=== PATIENT | male | born 1940 | race African-American/Black ===

== ENCOUNTER 2016-09-04 13:29 | Inpatient (IN) | payer OTHER, BC ==
[~2016-09-04] VITALS: Ht 175.3 cm; Wt 67.9 kg
[2016-09-04 11:30] VITALS: BP 142/81
[~2016-09-04 13:29] MED LIST: AMLODIPINE BESY10 MG PO; BICITRA SOLUTI473 ML PO; CARDIZEM CD120 M1 PO; CEFTIN500 MG PO; CYANOCOBALAM1000 MCG PO; ELIQUIS5 MG PO; ENDOCET 5-3251 EACH PO; ERGOCALCIF50000 UNIT PO; LANTUS 10100 UNITS/ SC; LEVEMIR100 UNIT/2 SC; LOPRESSOR100 M1 PO; NOVOLOG PE100 UNITS/ SC; SIMVASTATIN10 MG PO; VANCOMYCIN1.25 GM/25 IV
[2016-09-04 14:08] LABS: POINT-OF-CARE METER ID UU13113778
[2016-09-04 15:02] LABS: HEMATOCRIT 32.4 % (38.0-50.0); MCH 29.6 PG (29.0-34.0); MCV 89.8 FL (86-99); MEAN PLAT.VOLUME 9.9 uM^3 (9.0-12.4); PLATELET COUNT 257 K/uL (156-360); RBC DIS.WIDTH-CV 13.5 % (11.8-14.6); RBC DIS.WIDTH-SD 44.6 % (39-53); RED BLOOD COUNT 3.61 M/uL (4.00-5.50); WHITE BLOOD COUNT 16.8 K/uL (4.1-10.2)
[2016-09-04 15:13] LABS: CHLORIDE 106 mEq/L (99-109); POTASSIUM 4.8 mEq/L (3.7-5.4); SODIUM 136 mEq/L (136-147)
[2016-09-04 15:15] LABS: GLUCOSE 288 mg/dL (70-99)
[2016-09-04 15:16] LABS: ANION GAP 12 MEQ/L (2-14)
[2016-09-04 15:19] LABS: GFR ESTIMATE (CALCULATED) 31 mL/min/
[2016-09-04 15:20] LABS: UREA NITROGEN (BUN) 39 mg/dL (9-23)
[2016-09-04 15:27] LABS: TROP-I INTERPRETATION POSITIVE
[2016-09-04 15:46] LABS: TROPONIN-I 3.86 ng/mL (0.0-0.30)
[2016-09-04] MEDS ORDERED: NOVOLOG PE100 UNITS/ SC (16:28)
[2016-09-04] MEDS ORDERED: LANTUS 3 M100 UNITS1 SC (16:31)
[2016-09-04] MEDS ORDERED: ELIQUIS5 MG PO (16:32)
[2016-09-04] MEDS ORDERED: CEPHALEXIN250 MG PO (16:33)
[2016-09-04] MEDS ORDERED: NORVASC10 MG PO (16:33)
[2016-09-04 17:16] LABS: ADD MIUA? YES; BILIRUBIN NEGATIVE; BLOOD MODERATE; COLOR YELLOW ((YELLOW)); GLUCOSE (STRIP) >=500; KETONES NEGATIVE; LEUKOCYTES NEGATIVE; NITRITE NEGATIVE; PROTEIN (STRIP) 100; UROBILINOGEN 0.2 MG/DL (0.2-1.0)
[2016-09-04 17:40] LABS: BACTERIA 1+ /HPF; EPITHELIAL CELLS RARE /HPF; MUCUS NONE SEEN /LPF; RED BLOOD CELLS 0-5 /HPF (0-5); UCUL ADDED? NO; WHITE BLOOD CELLS 0-5 /HPF (0-5)
[2016-09-04 18:30] VITALS: BP 144/81
[2016-09-04 19:40] VITALS: BP 150/71
[2016-09-04 21:52] LABS: TROP-I INTERPRETATION POSITIVE; TROPONIN-I 5.61 ng/mL (0.0-0.30)
[2016-09-04 23:06] LABS: BASE EXCESS -5.3 mEq/L (-3 to +3); BICARBONATE 18.6 mEq/L (22-26); CARBOXY HGB 1.7 % (0-5); COMMENTS - BLOOD GASES C+A+; DEVICE HFNC; METHEMOGLOBIN 1.7 % (0-1.5); O2 FLOW 10 L/MIN; PCO2 30 mm Hg (35-45); PO2 51 mm Hg (80-100); SITE RR
[2016-09-04 23:07] LABS: TOTAL RESP RATE 30 resp/min
[2016-09-05] VITALS (10 sets, daily range): BP systolic 96–154; BP diastolic 49–86
[2016-09-05 03:42] LABS: EOSINOPHIL (%) 0 % (0-5); HEMATOCRIT 29.9 % (38.0-50.0); IMMATURE GRANULOCYTE (%) 0.5 % (0.0-0.7); IMMATURE GRANULOCYTE COUNT 0.1 K/uL; LYMPHOCYTE COUNT 1.6 K/uL (1.0-2.8); MCH 29.8 PG (29.0-34.0); MCHC 33.1 G/DL (30.0-36.0); MCV 90.1 FL (86-99); MEAN PLAT.VOLUME 10.6 uM^3 (9.0-12.4); MONOCYTE (%) 14.2 % (3-12); MONOCYTE COUNT 2.4 K/uL (0-0.8); NEUTROPHIL (%) 75.6 % (45-76); PLATELET COUNT 221 K/uL (156-360); RBC DIS.WIDTH-CV 13.7 % (11.8-14.6); RBC DIS.WIDTH-SD 45.3 % (39-53); RED BLOOD COUNT 3.32 M/uL (4.00-5.50); WHITE BLOOD COUNT 17.2 K/uL (4.1-10.2)
[2016-09-05 03:50] LABS: CHLORIDE 107 mEq/L (99-109); POTASSIUM 4.7 mEq/L (3.7-5.4); SODIUM 135 mEq/L (136-147)
[2016-09-05 03:52] LABS: GLUCOSE 271 mg/dL (70-99)
[2016-09-05 03:53] LABS: ANION GAP 14 MEQ/L (2-14)
[2016-09-05 03:56] LABS: GFR ESTIMATE (CALCULATED) 33 mL/min/; UREA NITROGEN (BUN) 41 mg/dL (9-23)
[2016-09-05 04:07] LABS: TROP-I INTERPRETATION POSITIVE; TROPONIN-I 5.33 ng/mL (0.0-0.30)
[2016-09-05 08:07] LABS: POINT-OF-CARE METER ID UU14174216
[2016-09-05 08:35] LABS: INTERNAL CONTROL VALID? YES
[2016-09-05 09:09] LABS: ANION GAP 12 MEQ/L (2-14); CHLORIDE 103 MEQ/L (99-109); GFR ESTIMATE (CALCULATED) 34 mL/min/; GLUCOSE 244 mg/dL (70-99); POTASSIUM 4.5 MEQ/L (3.7-5.4); SAMPLE HEMOLYSIS CHECK 0; SAMPLE ICTERIC CHECK 0; SAMPLE LIPEMIA CHECK 0; SODIUM 134 MEQ/L (136-147); UREA NITROGEN (BUN) 41 mg/dL (9-23)
[2016-09-05 13:05] LABS: BICARBONATE 16.2 mEq/L (22-26); CARBOXY HGB 1.5 % (0-5); METHEMOGLOBIN 1.3 % (0-1.5); PCO2 25 mm Hg (35-45); pH 7.42 (7.35-7.45)
[2016-09-05 13:06] LABS: COMMENTS - BLOOD GASES A+C+; DEVICE NRBM; FI02 100 %; O2 FLOW 15 L/MIN; PO2 95 mm Hg (80-100); SITE LR; TOTAL RESP RATE 25 resp/min
[2016-09-05 13:54] LABS: POINT-OF-CARE METER ID UU13113696
[2016-09-05 15:44] LABS: BASE EXCESS -11.1 mEq/L (-3 to +3); BICARBONATE 14.6 mEq/L (22-26); CARBOXY HGB 1.2 % (0-5); METHEMOGLOBIN 1.3 % (0-1.5)
[2016-09-05 15:45] LABS: PCO2 31 mm Hg (35-45); PO2 64 mm Hg (80-100); pH 7.28 (7.35-7.45)
[2016-09-05 15:46] LABS: SITE RF
[2016-09-05 18:30] LABS: CARBOXY HGB 1.3 % (0-5); METHEMOGLOBIN 1.5 % (0-1.5)
[2016-09-05 18:31] LABS: BICARBONATE 17.7 mEq/L (22-26); COMMENTS - BLOOD GASES C+; DEVICE 980; FI02 80 %; MECHANICAL RATE 22 resp/min; MODE A/C; PCO2 36 mm Hg (35-45); PEEP 14 CM/H20; PO2 289 mm Hg (80-100); SITE RIGHT FEMRAL ALINE; TIDAL VOLUME 500 ML
[2016-09-05 18:40] LABS: POINT-OF-CARE METER ID UU13113731
[2016-09-05 19:08] LABS: EOSINOPHIL (%) 0 % (0-5); IMMATURE GRANULOCYTE (%) 0.9 % (0.0-0.7); IMMATURE GRANULOCYTE COUNT 0.2 K/uL; INSTRUMENT ABS NEUTROPHIL CT 13.3 K/uL; LYMPHOCYTE COUNT 1.3 K/uL (1.0-2.8); MCHC 33.5 G/DL (30.0-36.0); MCV 89.7 FL (86-99); MEAN PLAT.VOLUME 10.9 uM^3 (9.0-12.4); MONOCYTE COUNT 2.4 K/uL (0-0.8); NEUTROPHIL (%) 77.4 % (45-76); NEUTROPHIL COUNT 13.3 K/uL (1.8-6.4); PLATELET COUNT 258 K/uL (156-360); RBC DIS.WIDTH-CV 13.9 % (11.8-14.6); RBC DIS.WIDTH-SD 45.3 % (39-53); WHITE BLOOD COUNT 17.2 K/uL (4.1-10.2)
[2016-09-05 19:15] LABS: CHLORIDE 106 mEq/L (99-109); POTASSIUM 4.6 mEq/L (3.7-5.4); SODIUM 133 mEq/L (136-147)
[2016-09-05 19:17] LABS: GLUCOSE 237 mg/dL (70-99)
[2016-09-05 19:19] LABS: ANION GAP 13 MEQ/L (2-14)
[2016-09-05 19:21] LABS: GFR ESTIMATE (CALCULATED) 31 mL/min/
[2016-09-05 19:22] LABS: UREA NITROGEN (BUN) 45 mg/dL (9-23)
[2016-09-05 23:45] LABS: HEMATOCRIT 24.6 % (38.0-50.0); MCHC 33.3 G/DL (30.0-36.0); MCV 90.1 FL (86-99); MEAN PLAT.VOLUME 10.5 uM^3 (9.0-12.4); NRBC (%) 0.1 /100 WBC (0-0); PLATELET COUNT 246 K/uL (156-360); RBC DIS.WIDTH-CV 13.9 % (11.8-14.6); RBC DIS.WIDTH-SD 45.5 % (39-53); RED BLOOD COUNT 2.73 M/uL (4.00-5.50); WHITE BLOOD COUNT 14.8 K/uL (4.1-10.2)
[2016-09-05 23:54] LABS: POINT-OF-CARE METER ID UU13113731; POINT-OF-CARE USER ID 609231305
[2016-09-06 00:03] LABS: INTER. NORMALIZED RATIO 1.3; PROTHROMBIN TIME 12.8 (9.2-11.2); PTT 36.5 (25-32)
[2016-09-06 01:02] LABS: TROP-I INTERPRETATION POSITIVE; TROPONIN-I 14.48 ng/mL (0.0-0.30)
[2016-09-06 01:02] LABS: CK-MB 18.6 ng/mL (0.0-4.9)
[2016-09-06 01:39] LABS: CREATINE KINASE 621 IU/L (1-294); TOTAL CK 621 IU/L (1-294)
[2016-09-06 02:24] LABS: METH RESISTANT S AUREUS PCR POSITIVE (NEGATIVE)
[2016-09-06 03:15] LABS: PROBE CHECK PASS
[2016-09-06 06:06] LABS: TROP-I INTERPRETATION POSITIVE; TROPONIN-I 13.06 ng/mL (0.0-0.30)
[2016-09-06 06:07] LABS: BASOPHIL COUNT 0.1 K/uL (0-0.1); EOSINOPHIL (%) 0.2 % (0-5); HEMATOCRIT 24.1 % (38.0-50.0); IMMATURE GRANULOCYTE (%) 0.6 % (0.0-0.7); IMMATURE GRANULOCYTE COUNT 0.1 K/uL; INSTRUMENT ABS NEUTROPHIL CT 13.6 K/uL; MCH 30.1 PG (29.0-34.0); MCHC 33.6 G/DL (30.0-36.0); MCV 89.6 FL (86-99); MEAN PLAT.VOLUME 10.8 uM^3 (9.0-12.4); MONOCYTE (%) 11.5 % (3-12); MONOCYTE COUNT 2.1 K/uL (0-0.8); NEUTROPHIL (%) 76.1 % (45-76); NEUTROPHIL COUNT 13.6 K/uL (1.8-6.4); NRBC (%) 0.2 /100 WBC (0-0); PLATELET COUNT 268 K/uL (156-360); RBC DIS.WIDTH-SD 45.2 % (39-53); RED BLOOD COUNT 2.69 M/uL (4.00-5.50); WHITE BLOOD COUNT 17.8 K/uL (4.1-10.2)
[2016-09-06 07:04] LABS: CK-MB 13.4 ng/mL (0.0-4.9)
[2016-09-06 07:18] LABS: ANION GAP 11 MEQ/L (2-14); CHLORIDE 107 MEQ/L (99-109); CREATINE KINASE 484 IU/L (1-294); GFR ESTIMATE (CALCULATED) 31 mL/min/; GLUCOSE 120 mg/dL (70-99); MAGNESIUM 2.2 mg/dl (1.3-2.7); SAMPLE HEMOLYSIS CHECK 1; SAMPLE ICTERIC CHECK 0; SAMPLE LIPEMIA CHECK 0; SODIUM 136 MEQ/L (136-147); TOTAL CK 484 IU/L (1-294); UREA NITROGEN (BUN) 45 mg/dL (9-23)
[2016-09-06 10:09] LABS: BASE EXCESS -7.8 mEq/L (-3 to +3); BICARBONATE 16.1 mEq/L (22-26); CARBOXY HGB 1.3 % (0-5); PCO2 26 mm Hg (35-45); PO2 154 mm Hg (80-100); SITE L ART LINE
[2016-09-06 10:10] LABS: DEVICE VENT; FI02 50 %; MECHANICAL RATE 18 resp/min; MODE AC; PEEP 10 CM/H20; TIDAL VOLUME 500 ML; TOTAL RESP RATE 26 resp/min
[2016-09-06 11:02] LABS: ADD MIUA? YES; BILIRUBIN NEGATIVE; BLOOD SMALL; GLUCOSE (STRIP) NEGATIVE; KETONES NEGATIVE; LEUKOCYTES TRACE; NITRITE NEGATIVE; PROTEIN (STRIP) 100; SPECIFIC GRAVITY 1.018 (1.000-1.030); UROBILINOGEN 0.2 MG/DL (0.2-1.0)
[2016-09-06 11:03] LABS: COLOR LT YELLOW ((YELLOW))
[2016-09-06 11:23] LABS: BACTERIA RARE /HPF; CALCIUM OXALATE CRYSTALS 2+ /HPF; EPITHELIAL CELLS RARE /HPF; GRANULAR CASTS 0-5 /LPF; HYALINE CASTS 0-5 /LPF; MUCUS 1+ /LPF; RED BLOOD CELLS 20-30 /HPF (0-5); UCUL ADDED? NO; WHITE BLOOD CELLS 30-40 /HPF (0-5)
[2016-09-06 12:01] LABS: POINT-OF-CARE METER ID UU13113803
[2016-09-06 13:08] LABS: UR CREATININE CONCENTRATION 70.5 MG/DL
[2016-09-06 13:27] LABS: CREATINE KINASE 567 IU/L (1-294); TOTAL CK 567 IU/L (1-294)
[2016-09-06 13:34] LABS: CK-MB 10.7 ng/mL (0.0-4.9)
[2016-09-06 13:38] LABS: TROP-I INTERPRETATION POSITIVE; TROPONIN-I 9.12 ng/mL (0.0-0.30)
[2016-09-06 16:16] LABS: BASE EXCESS -7.2 mEq/L (-3 to +3); BICARBONATE 17.2 mEq/L (22-26); CARBOXY HGB 1.4 % (0-5); METHEMOGLOBIN 1.6 % (0-1.5); PCO2 29 mm Hg (35-45); pH 7.38 (7.35-7.45)
[2016-09-06 16:17] LABS: PO2 175 mm Hg (80-100)
[2016-09-06 16:18] LABS: COMMENTS - BLOOD GASES C+; DEVICE VENT; FI02 50 %; MECHANICAL RATE 16 resp/min; MODE A/C; PEEP 10 CM/H20; SITE A LINE; TIDAL VOLUME 500 ML; TOTAL RESP RATE 23 resp/min
[2016-09-06 18:19] LABS: CREATINE KINASE 432 IU/L (1-294); TOTAL CK 432 IU/L (1-294)
[2016-09-06 18:24] LABS: TROP-I INTERPRETATION POSITIVE; TROPONIN-I 6.19 ng/mL (0.0-0.30)
[2016-09-06 18:24] LABS: POINT-OF-CARE METER ID UU13113803
[2016-09-06 18:39] LABS: CK-MB 11.7 ng/mL (0.0-4.9)
[2016-09-06 22:00] VITALS: BP 126/64
[2016-09-06 23:00] VITALS: BP 126/64
[2016-09-07 02:09] LABS: POINT-OF-CARE METER ID UU14162636
[2016-09-07 05:40] LABS: POINT-OF-CARE METER ID UU14162636
[2016-09-07 06:40] LABS: EOSINOPHIL (%) 1.6 % (0-5); EOSINOPHIL COUNT 0.2 K/uL (0-0.3); HEMATOCRIT 19.7 % (38.0-50.0); IMMATURE GRANULOCYTE (%) 0.4 % (0.0-0.7); INSTRUMENT ABS NEUTROPHIL CT 7.3 K/uL; LYMPHOCYTE COUNT 0.9 K/uL (1.0-2.8); MCHC 32.5 G/DL (30.0-36.0); MCV 92.5 FL (86-99); MONOCYTE (%) 11.3 % (3-12); MONOCYTE COUNT 1.1 K/uL (0-0.8); NEUTROPHIL (%) 76.9 % (45-76); NEUTROPHIL COUNT 7.3 K/uL (1.8-6.4); NRBC (%) 0.3 /100 WBC (0-0); RBC DIS.WIDTH-CV 14.2 % (11.8-14.6); RBC DIS.WIDTH-SD 47.8 % (39-53)
[2016-09-07 06:41] LABS: RED BLOOD COUNT 2.13 M/uL (4.00-5.50); WHITE BLOOD COUNT 9.5 K/uL (4.1-10.2)
[2016-09-07 06:49] LABS: ANION GAP 12 MEQ/L (2-14); CHLORIDE 109 MEQ/L (99-109); GLUCOSE 152 mg/dL (70-99); MAGNESIUM 2.3 mg/dl (1.3-2.7); SAMPLE HEMOLYSIS CHECK 0; SAMPLE ICTERIC CHECK 0; SAMPLE LIPEMIA CHECK 0; SODIUM 136 MEQ/L (136-147); UREA NITROGEN (BUN) 52 mg/dL (9-23)
[2016-09-07 06:51] LABS: GFR ESTIMATE (CALCULATED) 23 mL/min/
[2016-09-07 06:57] LABS: MEAN PLAT.VOLUME 10.9 uM^3 (9.0-12.4); PLAT.SUFFICIENCY ADEQUATE; PLATELET COUNT 190 K/uL (156-360)
[2016-09-07 10:28] VITALS: BP 126/53
[2016-09-07 12:12] LABS: POINT-OF-CARE METER ID UU14162636
[2016-09-07 12:55] VITALS: BP 114/52
[2016-09-07 18:06] LABS: MCV 89.5 FL (86-99)
[2016-09-07 21:37] LABS: ANION GAP 12 MEQ/L (2-14); CHLORIDE 109 MEQ/L (99-109); GFR ESTIMATE (CALCULATED) 21 mL/min/; GLUCOSE 143 mg/dL (70-99); SAMPLE HEMOLYSIS CHECK 0; SAMPLE ICTERIC CHECK 0; SAMPLE LIPEMIA CHECK 0; SODIUM 135 MEQ/L (136-147); UREA NITROGEN (BUN) 50 mg/dL (9-23)
[2016-09-08 01:04] LABS: POINT-OF-CARE METER ID UU13113803
[2016-09-08 06:34] LABS: POINT-OF-CARE METER ID UU13113803
[2016-09-08 07:45] LABS: EOSINOPHIL COUNT 0.4 K/uL (0-0.3); HEMATOCRIT 24.8 % (38.0-50.0); IMMATURE GRANULOCYTE (%) 0.7 % (0.0-0.7); IMMATURE GRANULOCYTE COUNT 0.1 K/uL; INSTRUMENT ABS NEUTROPHIL CT 6.2 K/uL; LYMPHOCYTE COUNT 0.8 K/uL (1.0-2.8); MCHC 33.1 G/DL (30.0-36.0); MCV 87.6 FL (86-99); MEAN PLAT.VOLUME 10.8 uM^3 (9.0-12.4); MONOCYTE (%) 10.5 % (3-12); MONOCYTE COUNT 0.9 K/uL (0-0.8); NEUTROPHIL (%) 73.7 % (45-76); NEUTROPHIL COUNT 6.2 K/uL (1.8-6.4); NRBC (%) 1.3 /100 WBC (0-0); PLATELET COUNT 230 K/uL (156-360); RBC DIS.WIDTH-CV 15.6 % (11.8-14.6); RBC DIS.WIDTH-SD 50.2 % (39-53); WHITE BLOOD COUNT 8.4 K/uL (4.1-10.2)
[2016-09-08 07:47] LABS: RED BLOOD COUNT 2.83 M/uL (4.00-5.50)
[2016-09-08 08:27] LABS: ANION GAP 18 MEQ/L (2-14); CHLORIDE 107 MEQ/L (99-109); GFR ESTIMATE (CALCULATED) 18 mL/min/; GLUCOSE 170 mg/dL (70-99); MAGNESIUM 2.4 mg/dl (1.3-2.7); POTASSIUM 4.8 MEQ/L (3.7-5.4); SAMPLE HEMOLYSIS CHECK 0; SAMPLE ICTERIC CHECK 0; SAMPLE LIPEMIA CHECK 0; SODIUM 137 MEQ/L (136-147); UREA NITROGEN (BUN) 53 mg/dL (9-23)
[2016-09-08 12:23] LABS: POINT-OF-CARE METER ID UU13113803
[2016-09-08 15:04] LABS: IRON 69 MCG/DL (35-150)
[2016-09-08 15:33] LABS: BASE EXCESS -8.8 mEq/L (-3 to +3); BICARBONATE 14.9 mEq/L (22-26); CARBOXY HGB 1.7 % (0-5); METHEMOGLOBIN 1.2 % (0-1.5)
[2016-09-08 15:34] LABS: COMMENTS - BLOOD GASES C+; DEVICE VENT; FI02 40 %; MECHANICAL RATE 16 resp/min; MODE AC PC; PCO2 24 mm Hg (35-45); PO2 61 mm Hg (80-100); PRESSURE CONTROL VENTILATION 12 CM H20; SITE LR ALINE; TOTAL RESP RATE 30 resp/min
[2016-09-08 15:35] LABS: INSPIRATION TIME 0.8 seconds; PEEP 8 CM/H20
[2016-09-08 17:37] LABS: POINT-OF-CARE METER ID UU13113803
[2016-09-08 18:30] VITALS: BP 126/64
[2016-09-08 18:36] LABS: BASE EXCESS -8.2 mEq/L (-3 to +3); BICARBONATE 15.2 mEq/L (22-26); CARBOXY HGB 1.6 % (0-5); DEVICE 940; FI02 40 %; METHEMOGLOBIN 1.5 % (0-1.5); PCO2 24 mm Hg (35-45); PO2 58 mm Hg (80-100); SITE LEFT A LINE; pH 7.41 (7.35-7.45)
[2016-09-08 18:37] LABS: MECHANICAL RATE 16 resp/min; MODE A/C VC+; TIDAL VOLUME 500 ML
[2016-09-09] VITALS (10 sets, daily range): BP systolic 116–146; BP diastolic 62–81
[2016-09-09 00:35] LABS: POINT-OF-CARE METER ID UU14174217
[2016-09-09 05:47] LABS: EOSINOPHIL (%) 4.1 % (0-5); EOSINOPHIL COUNT 0.5 K/uL (0-0.3); HEMATOCRIT 24.6 % (38.0-50.0); IMMATURE GRANULOCYTE (%) 1.3 % (0.0-0.7); IMMATURE GRANULOCYTE COUNT 0.2 K/uL; INSTRUMENT ABS NEUTROPHIL CT 8.5 K/uL; LYMPHOCYTE COUNT 0.8 K/uL (1.0-2.8); MCH 29.5 PG (29.0-34.0); MCHC 33.7 G/DL (30.0-36.0); MCV 87.5 FL (86-99); MEAN PLAT.VOLUME 10.3 uM^3 (9.0-12.4); MONOCYTE (%) 11.5 % (3-12); MONOCYTE COUNT 1.3 K/uL (0-0.8); NEUTROPHIL (%) 75.5 % (45-76); NEUTROPHIL COUNT 8.5 K/uL (1.8-6.4); NRBC (%) 2.2 /100 WBC (0-0); PLATELET COUNT 232 K/uL (156-360); RBC DIS.WIDTH-CV 15.5 % (11.8-14.6); RBC DIS.WIDTH-SD 49.4 % (39-53); RED BLOOD COUNT 2.81 M/uL (4.00-5.50); WHITE BLOOD COUNT 11.2 K/uL (4.1-10.2)
[2016-09-09 05:49] LABS: POINT-OF-CARE METER ID UU13113803
[2016-09-09 05:50] LABS: TRIGLYCERIDES 108 MG/DL (Normal: <150)
[2016-09-09 06:14] LABS: ALKALINE PHOSPHATASE 166 IU/L (3-129); ANION GAP 18 MEQ/L (2-14); CHLORIDE 108 MEQ/L (99-109); DIRECT BILIRUBIN 0.2 mg/dL (0.0-0.3); GFR ESTIMATE (CALCULATED) 17 mL/min/; GLUCOSE 140 mg/dL (70-99); MAGNESIUM 2.4 mg/dl (1.3-2.7); SAMPLE HEMOLYSIS CHECK 0; SAMPLE ICTERIC CHECK 0; SAMPLE LIPEMIA CHECK 0; SODIUM 139 MEQ/L (136-147); TOTAL BILIRUBIN 0.7 MG/DL (0.0-1.0); UREA NITROGEN (BUN) 63 mg/dL (9-23)
[2016-09-09 07:18] LABS: INTACT PARATHYROID HORMONE 335 pg/mL (10-69)
[2016-09-09 12:21] LABS: POINT-OF-CARE METER ID UU14174217
[2016-09-09 15:10] LABS: MAGNESIUM 2.5 mg/dL (1.3-2.7)
[2016-09-09 18:02] LABS: POINT-OF-CARE METER ID UU13113803
[2016-09-09 23:35] LABS: POINT-OF-CARE METER ID UU14174217
[2016-09-10] VITALS (12 sets, daily range): BP systolic 105–162; BP diastolic 59–90
[2016-09-10 05:15] LABS: POINT-OF-CARE METER ID UU13113731
[2016-09-10 05:33] LABS: CARBOXY HGB 1.6 % (0-5); METHEMOGLOBIN 1.1 % (0-1.5); PCO2 28 mm Hg (35-45); pH 7.43 (7.35-7.45)
[2016-09-10 05:34] LABS: BICARBONATE 18.6 mEq/L (22-26); FI02 50 %; MECHANICAL RATE 16 resp/min; MODE AVVC+; PEEP 8 CM/H20; PO2 76 mm Hg (80-100); TIDAL VOLUME 500 ML; TOTAL RESP RATE 31 resp/min
[2016-09-10 05:35] LABS: COMMENTS - BLOOD GASES C+; DEVICE PB980; SITE A-LINE
[2016-09-10 06:10] LABS: EOSINOPHIL (%) 5.5 % (0-5); EOSINOPHIL COUNT 0.6 K/uL (0-0.3); HEMATOCRIT 24.1 % (38.0-50.0); IMMATURE GRANULOCYTE (%) 1.7 % (0.0-0.7); IMMATURE GRANULOCYTE COUNT 0.2 K/uL; INSTRUMENT ABS NEUTROPHIL CT 8.3 K/uL; LYMPHOCYTE COUNT 0.9 K/uL (1.0-2.8); MCH 29.3 PG (29.0-34.0); MCHC 32.8 G/DL (30.0-36.0); MCV 89.3 FL (86-99); MEAN PLAT.VOLUME 10.4 uM^3 (9.0-12.4); MONOCYTE (%) 12.7 % (3-12); MONOCYTE COUNT 1.5 K/uL (0-0.8); NEUTROPHIL (%) 72.4 % (45-76); NEUTROPHIL COUNT 8.3 K/uL (1.8-6.4); PLATELET COUNT 221 K/uL (156-360); RBC DIS.WIDTH-CV 15.7 % (11.8-14.6); RBC DIS.WIDTH-SD 50.5 % (39-53); WHITE BLOOD COUNT 11.5 K/uL (4.1-10.2)
[2016-09-10 06:45] LABS: ANION GAP 21 MEQ/L (2-14); CHLORIDE 105 MEQ/L (99-109); GFR ESTIMATE (CALCULATED) 17 mL/min/; MAGNESIUM 2.5 mg/dl (1.3-2.7); POTASSIUM 4.1 MEQ/L (3.7-5.4); SAMPLE HEMOLYSIS CHECK 1; SAMPLE ICTERIC CHECK 0; SAMPLE LIPEMIA CHECK 0; SODIUM 142 MEQ/L (136-147); UREA NITROGEN (BUN) 72 mg/dL (9-23)
[2016-09-10 06:46] LABS: GLUCOSE 219 mg/dL (70-99)
[2016-09-10 12:05] LABS: POINT-OF-CARE METER ID UU13113731
[2016-09-10 17:54] LABS: POINT-OF-CARE METER ID UU13113731
[2016-09-11] VITALS (7 sets, daily range): BP systolic 0–162; BP diastolic 0–79
[2016-09-11 00:11] LABS: POINT-OF-CARE METER ID UU14162636
[2016-09-11 05:18] LABS: POINT-OF-CARE METER ID UU13113731
[2016-09-11 07:19] LABS: EOSINOPHIL (%) 4.5 % (0-5); EOSINOPHIL COUNT 0.6 K/uL (0-0.3); HEMATOCRIT 24.6 % (38.0-50.0); IMMATURE GRANULOCYTE (%) 1.8 % (0.0-0.7); IMMATURE GRANULOCYTE COUNT 0.2 K/uL; INSTRUMENT ABS NEUTROPHIL CT 9.8 K/uL; MCH 29.9 PG (29.0-34.0); MCHC 33.7 G/DL (30.0-36.0); MCV 88.5 FL (86-99); MONOCYTE (%) 10.4 % (3-12); MONOCYTE COUNT 1.4 K/uL (0-0.8); NEUTROPHIL (%) 75.4 % (45-76); NEUTROPHIL COUNT 9.8 K/uL (1.8-6.4); NRBC (%) 2.2 /100 WBC (0-0); PLATELET COUNT 249 K/uL (156-360); RBC DIS.WIDTH-CV 15.4 % (11.8-14.6); RBC DIS.WIDTH-SD 49.1 % (39-53); RED BLOOD COUNT 2.78 M/uL (4.00-5.50)
[2016-09-11 07:57] LABS: ALKALINE PHOSPHATASE 173 IU/L (3-129); ANION GAP 20 MEQ/L (2-14); CHLORIDE 101 MEQ/L (99-109); GFR ESTIMATE (CALCULATED) 19 mL/min/; GLUCOSE 236 mg/dL (70-99); MAGNESIUM 2.4 mg/dl (1.3-2.7); SAMPLE HEMOLYSIS CHECK 0; SAMPLE ICTERIC CHECK 0; SAMPLE LIPEMIA CHECK 0; SODIUM 145 MEQ/L (136-147); UREA NITROGEN (BUN) 79 mg/dL (9-23)
[2016-09-11 08:00] LABS: POTASSIUM 3.2 MEQ/L (3.7-5.4)
[2016-09-11 08:01] LABS: DIRECT BILIRUBIN 0.7 mg/dL (0.0-0.3); TOTAL BILIRUBIN 1.2 MG/DL (0.0-1.0)
[2016-09-11 11:57] LABS: POINT-OF-CARE METER ID UU13113731
[2016-09-11 17:43] LABS: CHLORIDE 106 mEq/L (99-109); POTASSIUM 3.4 mEq/L (3.7-5.4); SODIUM 149 mEq/L (136-147)
[2016-09-11 17:46] LABS: POINT-OF-CARE METER ID UU13113731
[2016-09-11 17:46] LABS: ANION GAP 19 MEQ/L (2-14)
[2016-09-11 17:47] LABS: GLUCOSE 111 mg/dL (70-99)
[2016-09-11 17:49] LABS: GFR ESTIMATE (CALCULATED) 20 mL/min/
[2016-09-11 17:50] LABS: UREA NITROGEN (BUN) 80 mg/dL (9-23)
[2016-09-12] VITALS (8 sets, daily range): BP systolic 114–134; BP diastolic 69–84
[2016-09-12 05:47] LABS: POINT-OF-CARE METER ID UU14162636
[2016-09-12 07:07] LABS: EOSINOPHIL (%) 5.7 % (0-5); EOSINOPHIL COUNT 0.8 K/uL (0-0.3); HEMATOCRIT 26.4 % (38.0-50.0); IMMATURE GRANULOCYTE (%) 1.4 % (0.0-0.7); IMMATURE GRANULOCYTE COUNT 0.2 K/uL; INSTRUMENT ABS NEUTROPHIL CT 9.2 K/uL; LYMPHOCYTE COUNT 1.4 K/uL (1.0-2.8); MCH 29.2 PG (29.0-34.0); MCHC 32.2 G/DL (30.0-36.0); MCV 90.7 FL (86-99); MEAN PLAT.VOLUME 10.7 uM^3 (9.0-12.4); NEUTROPHIL (%) 67.3 % (45-76); NEUTROPHIL COUNT 9.2 K/uL (1.8-6.4); NRBC (%) 2.2 /100 WBC (0-0); PLATELET COUNT 305 K/uL (156-360); RBC DIS.WIDTH-CV 15.5 % (11.8-14.6); RBC DIS.WIDTH-SD 50.8 % (39-53); RED BLOOD COUNT 2.91 M/uL (4.00-5.50); WHITE BLOOD COUNT 13.6 K/uL (4.1-10.2)
[2016-09-12 07:36] LABS: ANION GAP 17 MEQ/L (2-14); ANION GAP 18 MEQ/L (2-14); CHLORIDE 103 MEQ/L (99-109); CHLORIDE 104 MEQ/L (99-109); GFR ESTIMATE (CALCULATED) 21 mL/min/; GLUCOSE 93 mg/dL (70-99); GLUCOSE 94 mg/dL (70-99); MAGNESIUM 2.5 mg/dl (1.3-2.7); POTASSIUM 3.6 MEQ/L (3.7-5.4); POTASSIUM 3.7 MEQ/L (3.7-5.4); SAMPLE HEMOLYSIS CHECK 0; SAMPLE ICTERIC CHECK 0; SAMPLE LIPEMIA CHECK 0; SODIUM 148 MEQ/L (136-147); UREA NITROGEN (BUN) 81 mg/dL (9-23); UREA NITROGEN (BUN) 86 mg/dL (9-23)
[2016-09-12 12:52] LABS: POINT-OF-CARE METER ID UU14162636
[2016-09-12 17:19] LABS: POINT-OF-CARE METER ID UU14162636
[2016-09-13] VITALS (13 sets, daily range): BP systolic 136–161; BP diastolic 62–91
[2016-09-13 06:04] LABS: POINT-OF-CARE METER ID UU13113731
[2016-09-13 06:33] LABS: HEMATOCRIT 26.6 % (38.0-50.0); MCH 30.1 PG (29.0-34.0); MCHC 32.7 G/DL (30.0-36.0); MEAN PLAT.VOLUME 10.4 uM^3 (9.0-12.4); NRBC (%) 1.9 /100 WBC (0-0); PLATELET COUNT 316 K/uL (156-360); RBC DIS.WIDTH-CV 15.6 % (11.8-14.6); RED BLOOD COUNT 2.89 M/uL (4.00-5.50); WHITE BLOOD COUNT 12.3 K/uL (4.1-10.2)
[2016-09-13 07:10] LABS: ANION GAP 13 MEQ/L (2-14); CHLORIDE 109 MEQ/L (99-109); GFR ESTIMATE (CALCULATED) 25 mL/min/; MAGNESIUM 2.5 mg/dl (1.3-2.7); POTASSIUM 3.5 MEQ/L (3.7-5.4); SAMPLE HEMOLYSIS CHECK 0; SAMPLE ICTERIC CHECK 0; SAMPLE LIPEMIA CHECK 0; SODIUM 149 MEQ/L (136-147); UREA NITROGEN (BUN) 86 mg/dL (9-23)
[2016-09-13 07:14] LABS: GLUCOSE 193 mg/dL (70-99)
[2016-09-13 07:26] LABS: EOSINOPHIL (%) 3.7 % (0-5); EOSINOPHIL COUNT 0.5 K/uL (0-0.3); IMMATURE GRANULOCYTE (%) 1.8 % (0.0-0.7); IMMATURE GRANULOCYTE COUNT 0.2 K/uL; INSTRUMENT ABS NEUTROPHIL CT 8.2 K/uL; LYMPHOCYTE COUNT 1.6 K/uL (1.0-2.8); MONOCYTE (%) 14.6 % (3-12); MONOCYTE COUNT 1.8 K/uL (0-0.8); NEUTROPHIL (%) 66.4 % (45-76); NEUTROPHIL COUNT 8.2 K/uL (1.8-6.4)
[2016-09-14] VITALS (14 sets, daily range): BP systolic 137–160; BP diastolic 65–84
[2016-09-14 00:03] LABS: POINT-OF-CARE METER ID UU13113731
[2016-09-14 05:46] LABS: EOSINOPHIL (%) 0.8 % (0-5); EOSINOPHIL COUNT 0.1 K/uL (0-0.3); HEMATOCRIT 28.6 % (38.0-50.0); IMMATURE GRANULOCYTE (%) 1.5 % (0.0-0.7); IMMATURE GRANULOCYTE COUNT 0.3 K/uL; INSTRUMENT ABS NEUTROPHIL CT 12.8 K/uL; LYMPHOCYTE COUNT 1.8 K/uL (1.0-2.8); MCH 29.2 PG (29.0-34.0); MCHC 31.1 G/DL (30.0-36.0); MCV 93.8 FL (86-99); MEAN PLAT.VOLUME 10.2 uM^3 (9.0-12.4); MONOCYTE (%) 12.9 % (3-12); MONOCYTE COUNT 2.2 K/uL (0-0.8); NEUTROPHIL (%) 74.3 % (45-76); NEUTROPHIL COUNT 12.8 K/uL (1.8-6.4); NRBC (%) 1.3 /100 WBC (0-0); PLATELET COUNT 343 K/uL (156-360); RBC DIS.WIDTH-SD 52.1 % (39-53); RED BLOOD COUNT 3.05 M/uL (4.00-5.50)
[2016-09-14 05:52] LABS: WHITE BLOOD COUNT 17.2 K/uL (4.1-10.2)
[2016-09-14 06:00] LABS: MAGNESIUM 2.5 mg/dL (1.3-2.7)
[2016-09-14 06:45] LABS: CHLORIDE 116 mEq/L (99-109); POTASSIUM 3.5 mEq/L (3.7-5.4); SODIUM 151 mEq/L (136-147)
[2016-09-14 06:45] LABS: POINT-OF-CARE METER ID UU14174217
[2016-09-14 06:47] LABS: GLUCOSE 197 mg/dL (70-99)
[2016-09-14 06:48] LABS: ANION GAP 12 MEQ/L (2-14)
[2016-09-14 06:51] LABS: GFR ESTIMATE (CALCULATED) 27 mL/min/
[2016-09-14 06:52] LABS: UREA NITROGEN (BUN) 87 mg/dL (9-23)
[2016-09-14 07:04] LABS: ABS NEUTROPHIL COUNT 13.8; BASOPHILS 0.9 %; EOSINOPHIL ABS CT 0; METAMYELOCYTES 0.9 %; NUCLEATED RBC'S 1.7
[2016-09-14 11:00] LABS: C DIFF TOXIN NEGATIVE (NEGATIVE)
[2016-09-14 11:01] LABS: PROBE CHECK PASS; SPECIMEN PROCESSING CONTROL PASS
[2016-09-14 12:13] LABS: POINT-OF-CARE METER ID UU14174217; POINT-OF-CARE USER ID 606021424
[2016-09-14 13:35] LABS: BASE EXCESS 2.5 mEq/L (-3 to +3); BICARBONATE 26.2 mEq/L (22-26); CARBOXY HGB 2.2 % (0-5); COMMENTS - BLOOD GASES C+; DEVICE 980; FI02 30 %; MECHANICAL RATE 16 resp/min; METHEMOGLOBIN 1.6 % (0-1.5); MODE AC/VC+; PCO2 36 mm Hg (35-45); PO2 88 mm Hg (80-100); SITE ALINE; TOTAL RESP RATE 21 resp/min; pH 7.47 (7.35-7.45)
[2016-09-14 13:36] LABS: INSPIRATION TIME 0.8 seconds; PEEP 4 CM/H20; TIDAL VOLUME 500 ML
[2016-09-14 23:08] LABS: POINT-OF-CARE METER ID UU14174217
[2016-09-15] VITALS (24 sets, daily range): BP systolic 128–170; BP diastolic 61–87
[2016-09-15 06:31] LABS: POINT-OF-CARE METER ID UU14174217
[2016-09-15 06:44] LABS: EOSINOPHIL (%) 1.7 % (0-5); EOSINOPHIL COUNT 0.3 K/uL (0-0.3); HEMATOCRIT 29.1 % (38.0-50.0); IMMATURE GRANULOCYTE (%) 1.4 % (0.0-0.7); IMMATURE GRANULOCYTE COUNT 0.2 K/uL; INSTRUMENT ABS NEUTROPHIL CT 13.4 K/uL; LYMPHOCYTE COUNT 1.8 K/uL (1.0-2.8); MCH 29.6 PG (29.0-34.0); MCHC 30.6 G/DL (30.0-36.0); MCV 96.7 FL (86-99); MEAN PLAT.VOLUME 10.2 uM^3 (9.0-12.4); MONOCYTE (%) 11.4 % (3-12); NEUTROPHIL (%) 75.1 % (45-76); NEUTROPHIL COUNT 13.4 K/uL (1.8-6.4); NRBC (%) 0.9 /100 WBC (0-0); PLATELET COUNT 321 K/uL (156-360); RBC DIS.WIDTH-CV 16.2 % (11.8-14.6); RBC DIS.WIDTH-SD 54.9 % (39-53); RED BLOOD COUNT 3.01 M/uL (4.00-5.50); WHITE BLOOD COUNT 17.8 K/uL (4.1-10.2)
[2016-09-15 08:40] LABS: ANION GAP 12 MEQ/L (2-14); CHLORIDE 113 MEQ/L (99-109); GFR ESTIMATE (CALCULATED) 31 mL/min/; GLUCOSE 188 mg/dL (70-99); MAGNESIUM 2.5 mg/dl (1.3-2.7); POTASSIUM 3.8 MEQ/L (3.7-5.4); SAMPLE HEMOLYSIS CHECK 0; SAMPLE ICTERIC CHECK 0; SAMPLE LIPEMIA CHECK 0; SODIUM 150 MEQ/L (136-147); UREA NITROGEN (BUN) 82 mg/dL (9-23)
[2016-09-15 17:49] LABS: POINT-OF-CARE METER ID UU14174217
[2016-09-15 22:43] LABS: POINT-OF-CARE METER ID UU14174217
[2016-09-16] VITALS (14 sets, daily range): BP systolic 127–163; BP diastolic 60–102
[2016-09-16 00:21] LABS: POINT-OF-CARE METER ID UU14174217
[2016-09-16 05:45] LABS: POINT-OF-CARE METER ID UU13113731
[2016-09-16 05:53] LABS: BASOPHIL COUNT 0.1 K/uL (0-0.1); EOSINOPHIL (%) 1.3 % (0-5); EOSINOPHIL COUNT 0.3 K/uL (0-0.3); HEMATOCRIT 32.1 % (38.0-50.0); IMMATURE GRANULOCYTE (%) 1.3 % (0.0-0.7); IMMATURE GRANULOCYTE COUNT 0.3 K/uL; INSTRUMENT ABS NEUTROPHIL CT 16.2 K/uL; LYMPHOCYTE COUNT 2.2 K/uL (1.0-2.8); MCH 30.6 PG (29.0-34.0); MCHC 32.1 G/DL (30.0-36.0); MCV 95.3 FL (86-99); MONOCYTE (%) 11.5 % (3-12); MONOCYTE COUNT 2.5 K/uL (0-0.8); NEUTROPHIL (%) 75.5 % (45-76); NEUTROPHIL COUNT 16.2 K/uL (1.8-6.4); NRBC (%) 1.3 /100 WBC (0-0); RBC DIS.WIDTH-CV 16.3 % (11.8-14.6); RBC DIS.WIDTH-SD 53.9 % (39-53); RED BLOOD COUNT 3.37 M/uL (4.00-5.50); WHITE BLOOD COUNT 21.5 K/uL (4.1-10.2)
[2016-09-16 05:59] LABS: ANION GAP 17 MEQ/L (2-14); CHLORIDE 115 MEQ/L (99-109); GFR ESTIMATE (CALCULATED) 31 mL/min/; GLUCOSE 172 mg/dL (70-99); MAGNESIUM 2.6 mg/dl (1.3-2.7); POTASSIUM 4.2 MEQ/L (3.7-5.4); SAMPLE HEMOLYSIS CHECK 1; SAMPLE ICTERIC CHECK 0; SAMPLE LIPEMIA CHECK 0; SODIUM 151 MEQ/L (136-147); UREA NITROGEN (BUN) 88 mg/dL (9-23)
[2016-09-16 06:37] LABS: MEAN PLAT.VOLUME 10.8 uM^3 (9.0-12.4); PLATELET COUNT 407 K/uL (156-360)
[2016-09-16 06:38] LABS: PLATELET CLUMPS PRESENT - PLATELET C
[2016-09-16 11:46] LABS: POINT-OF-CARE METER ID UU13113731
[2016-09-16 16:28] LABS: POINT-OF-CARE METER ID UU13113731
[2016-09-17] VITALS (9 sets, daily range): BP systolic 118–168; BP diastolic 78–95
[2016-09-17 02:09] LABS: POINT-OF-CARE METER ID UU14162636
[2016-09-17 06:17] LABS: ANION GAP 15 MEQ/L (2-14); CHLORIDE 109 MEQ/L (99-109); MAGNESIUM 2.6 mg/dl (1.3-2.7); POTASSIUM 4.1 MEQ/L (3.7-5.4); SAMPLE HEMOLYSIS CHECK 1; SAMPLE ICTERIC CHECK 0; SAMPLE LIPEMIA CHECK 0; SODIUM 145 MEQ/L (136-147)
[2016-09-17 06:22] LABS: GFR ESTIMATE (CALCULATED) 33 mL/min/; GLUCOSE 228 mg/dL (70-99); GLUCOSE 229 mg/dL (70-99); UREA NITROGEN (BUN) 100 mg/dL (9-23); UREA NITROGEN (BUN) 99 mg/dL (9-23)
[2016-09-17 08:25] LABS: BASOPHIL COUNT 0.1 K/uL (0-0.1); EOSINOPHIL (%) 0.8 % (0-5); EOSINOPHIL COUNT 0.2 K/uL (0-0.3); IMMATURE GRANULOCYTE (%) 1.7 % (0.0-0.7); IMMATURE GRANULOCYTE COUNT 0.3 K/uL; INSTRUMENT ABS NEUTROPHIL CT 15.7 K/uL; LYMPHOCYTE COUNT 2.1 K/uL (1.0-2.8); MCH 30.4 PG (29.0-34.0); MCHC 31.9 G/DL (30.0-36.0); MCV 95.1 FL (86-99); MEAN PLAT.VOLUME 10.6 uM^3 (9.0-12.4); MONOCYTE (%) 10.5 % (3-12); MONOCYTE COUNT 2.2 K/uL (0-0.8); NEUTROPHIL (%) 76.2 % (45-76); NEUTROPHIL COUNT 15.7 K/uL (1.8-6.4); NRBC (%) 3.1 /100 WBC (0-0); PLATELET COUNT 372 K/uL (156-360); RBC DIS.WIDTH-CV 16.1 % (11.8-14.6); RBC DIS.WIDTH-SD 54.4 % (39-53); RED BLOOD COUNT 3.26 M/uL (4.00-5.50); WHITE BLOOD COUNT 20.6 K/uL (4.1-10.2)
[2016-09-17 09:15] LABS: BASE EXCESS -1.9 mEq/L (-3 to +3); BICARBONATE 21.5 mEq/L (22-26); CARBOXY HGB 2.4 % (0-5); METHEMOGLOBIN 1.8 % (0-1.5); PCO2 31 mm Hg (35-45); PO2 66 mm Hg (80-100); SITE LR; pH 7.45 (7.35-7.45)
[2016-09-17 09:16] LABS: COMMENTS - BLOOD GASES A+C+; DEVICE NC; O2 FLOW 3 L/MIN; TOTAL RESP RATE 24 resp/min
[2016-09-17 15:30] LABS: ADD MIUA? YES; BILIRUBIN NEGATIVE; BLOOD MODERATE; COLOR YELLOW ((YELLOW)); GLUCOSE (STRIP) NEGATIVE; KETONES NEGATIVE; LEUKOCYTES NEGATIVE; NITRITE NEGATIVE; PROTEIN (STRIP) 30; UROBILINOGEN 0.2 MG/DL (0.2-1.0)
[2016-09-17 16:29] LABS: BACTERIA NONE SEEN /HPF; EPITHELIAL CELLS NONE SEEN /HPF; HYALINE CASTS 0-5 /LPF; MUCUS NONE SEEN /LPF; UCUL ADDED? NO; WHITE BLOOD CELLS 0-5 /HPF (0-5)
[2016-09-18] VITALS (9 sets, daily range): BP systolic 132–168; BP diastolic 61–97
[2016-09-18 01:13] LABS: POINT-OF-CARE METER ID UU13113803
[2016-09-18 05:33] LABS: BASOPHIL COUNT 0.1 K/uL (0-0.1); EOSINOPHIL (%) 2.7 % (0-5); EOSINOPHIL COUNT 0.5 K/uL (0-0.3); HEMATOCRIT 31.3 % (38.0-50.0); IMMATURE GRANULOCYTE (%) 1.4 % (0.0-0.7); IMMATURE GRANULOCYTE COUNT 0.3 K/uL; INSTRUMENT ABS NEUTROPHIL CT 15.2 K/uL; LYMPHOCYTE COUNT 1.8 K/uL (1.0-2.8); MCH 29.6 PG (29.0-34.0); MCHC 31.6 G/DL (30.0-36.0); MCV 93.4 FL (86-99); MEAN PLAT.VOLUME 10.4 uM^3 (9.0-12.4); MONOCYTE (%) 10.2 % (3-12); NEUTROPHIL (%) 76.5 % (45-76); NEUTROPHIL COUNT 15.2 K/uL (1.8-6.4); NRBC (%) 2.8 /100 WBC (0-0); PLATELET COUNT 378 K/uL (156-360); RBC DIS.WIDTH-CV 16.1 % (11.8-14.6); RED BLOOD COUNT 3.35 M/uL (4.00-5.50); WHITE BLOOD COUNT 19.9 K/uL (4.1-10.2)
[2016-09-18 06:25] LABS: POINT-OF-CARE METER ID UU13113731
[2016-09-18 07:56] LABS: MAGNESIUM 2.5 mg/dl (1.3-2.7)
[2016-09-18 08:07] LABS: ANION GAP 16 MEQ/L (2-14); CHLORIDE 108 MEQ/L (99-109); GFR ESTIMATE (CALCULATED) 33 mL/min/; SAMPLE HEMOLYSIS CHECK 0; SAMPLE ICTERIC CHECK 0; SAMPLE LIPEMIA CHECK 0; SODIUM 148 MEQ/L (136-147)
[2016-09-18 08:09] LABS: GLUCOSE 103 mg/dL (70-99); POTASSIUM 3.1 MEQ/L (3.7-5.4); UREA NITROGEN (BUN) 109 mg/dL (9-23)
[2016-09-18 11:32] LABS: POINT-OF-CARE METER ID UU14174217
[2016-09-18 18:41] LABS: POINT-OF-CARE METER ID UU14174217
[2016-09-18 23:57] LABS: POINT-OF-CARE METER ID UU14174217; POINT-OF-CARE USER ID AGYTJR
[2016-09-19] VITALS (12 sets, daily range): BP systolic 112–150; BP diastolic 61–88
[2016-09-19 05:32] LABS: EOSINOPHIL (%) 4.3 % (0-5); EOSINOPHIL COUNT 0.7 K/uL (0-0.3); HEMATOCRIT 31.4 % (38.0-50.0); IMMATURE GRANULOCYTE (%) 0.8 % (0.0-0.7); IMMATURE GRANULOCYTE COUNT 0.1 K/uL; INSTRUMENT ABS NEUTROPHIL CT 12.8 K/uL; LYMPHOCYTE COUNT 1.6 K/uL (1.0-2.8); MCH 30.1 PG (29.0-34.0); MCHC 31.5 G/DL (30.0-36.0); MCV 95.4 FL (86-99); MEAN PLAT.VOLUME 10.9 uM^3 (9.0-12.4); MONOCYTE (%) 9.6 % (3-12); MONOCYTE COUNT 1.6 K/uL (0-0.8); NEUTROPHIL (%) 75.8 % (45-76); NEUTROPHIL COUNT 12.8 K/uL (1.8-6.4); NRBC (%) 2.2 /100 WBC (0-0); PLATELET COUNT 410 K/uL (156-360); RBC DIS.WIDTH-CV 16.6 % (11.8-14.6); RBC DIS.WIDTH-SD 53.7 % (39-53); RED BLOOD COUNT 3.29 M/uL (4.00-5.50); WHITE BLOOD COUNT 16.9 K/uL (4.1-10.2)
[2016-09-19 05:34] LABS: POINT-OF-CARE METER ID UU14162636; POINT-OF-CARE USER ID AGYTJR
[2016-09-19 06:05] LABS: ANION GAP 14 MEQ/L (2-14); CHLORIDE 114 MEQ/L (99-109); CHLORIDE 115 MEQ/L (99-109); GFR ESTIMATE (CALCULATED) 33 mL/min/; GLUCOSE 101 mg/dL (70-99); GLUCOSE 102 mg/dL (70-99); MAGNESIUM 2.6 mg/dl (1.3-2.7); POTASSIUM 3.4 MEQ/L (3.7-5.4); POTASSIUM 3.7 MEQ/L (3.7-5.4); SAMPLE HEMOLYSIS CHECK 0; SAMPLE ICTERIC CHECK 0; SAMPLE LIPEMIA CHECK 0; SODIUM 152 MEQ/L (136-147); SODIUM 153 MEQ/L (136-147); UREA NITROGEN (BUN) 100 mg/dL (9-23)
[2016-09-19 18:22] LABS: POINT-OF-CARE METER ID UU14174217
[2016-09-19 23:40] LABS: POINT-OF-CARE USER ID AGYTJR
[2016-09-20] VITALS (10 sets, daily range): BP systolic 140–160; BP diastolic 59–79
[2016-09-20 04:53] LABS: BASOPHIL COUNT 0.1 K/uL (0-0.1); EOSINOPHIL (%) 4.5 % (0-5); EOSINOPHIL COUNT 0.8 K/uL (0-0.3); HEMATOCRIT 32.7 % (38.0-50.0); IMMATURE GRANULOCYTE (%) 0.8 % (0.0-0.7); IMMATURE GRANULOCYTE COUNT 0.1 K/uL; INSTRUMENT ABS NEUTROPHIL CT 13.7 K/uL; LYMPHOCYTE COUNT 1.5 K/uL (1.0-2.8); MCH 29.5 PG (29.0-34.0); MCHC 30.9 G/DL (30.0-36.0); MCV 95.6 FL (86-99); MEAN PLAT.VOLUME 10.8 uM^3 (9.0-12.4); MONOCYTE (%) 8.1 % (3-12); MONOCYTE COUNT 1.4 K/uL (0-0.8); NEUTROPHIL (%) 77.7 % (45-76); NEUTROPHIL COUNT 13.7 K/uL (1.8-6.4); NRBC (%) 0.6 /100 WBC (0-0); PLATELET COUNT 412 K/uL (156-360); RBC DIS.WIDTH-CV 17.2 % (11.8-14.6); RED BLOOD COUNT 3.42 M/uL (4.00-5.50); WHITE BLOOD COUNT 17.7 K/uL (4.1-10.2)
[2016-09-20 05:07] LABS: CHLORIDE 116 mEq/L (99-109); MAGNESIUM 2.5 mg/dL (1.3-2.7); SODIUM 147 mEq/L (136-147)
[2016-09-20 05:08] LABS: POTASSIUM 4.5 mEq/L (3.7-5.4)
[2016-09-20 05:10] LABS: ANION GAP 11 MEQ/L (2-14)
[2016-09-20 05:13] LABS: GFR ESTIMATE (CALCULATED) 31 mL/min/; GLUCOSE 280 mg/dL (70-99)
[2016-09-20 05:14] LABS: UREA NITROGEN (BUN) 98 mg/dL (9-23)
[2016-09-20 06:32] LABS: POINT-OF-CARE METER ID UU14174217; POINT-OF-CARE USER ID AGYTJR
[2016-09-20 13:22] LABS: POINT-OF-CARE METER ID UU13113803
[2016-09-20 17:31] LABS: POINT-OF-CARE METER ID UU13113803
[2016-09-21] VITALS (17 sets, daily range): BP systolic 98–156; BP diastolic 56–79
[2016-09-21 01:30] LABS: POINT-OF-CARE METER ID UU14162636
[2016-09-21 04:48] LABS: BASOPHIL COUNT 0.1 K/uL (0-0.1); EOSINOPHIL (%) 4.6 % (0-5); EOSINOPHIL COUNT 0.8 K/uL (0-0.3); HEMATOCRIT 36.4 % (38.0-50.0); IMMATURE GRANULOCYTE (%) 0.6 % (0.0-0.7); IMMATURE GRANULOCYTE COUNT 0.1 K/uL; INSTRUMENT ABS NEUTROPHIL CT 12.2 K/uL; LYMPHOCYTE COUNT 1.7 K/uL (1.0-2.8); MCH 29.3 PG (29.0-34.0); MCHC 30.5 G/DL (30.0-36.0); MEAN PLAT.VOLUME 10.6 uM^3 (9.0-12.4); MONOCYTE (%) 9.8 % (3-12); MONOCYTE COUNT 1.6 K/uL (0-0.8); NEUTROPHIL (%) 74.2 % (45-76); NEUTROPHIL COUNT 12.2 K/uL (1.8-6.4); NRBC (%) 0.3 /100 WBC (0-0); PLATELET COUNT 444 K/uL (156-360); RBC DIS.WIDTH-CV 17.4 % (11.8-14.6); RBC DIS.WIDTH-SD 55.7 % (39-53); RED BLOOD COUNT 3.79 M/uL (4.00-5.50); WHITE BLOOD COUNT 16.4 K/uL (4.1-10.2)
[2016-09-21 04:56] LABS: INTER. NORMALIZED RATIO 1.2; PROTHROMBIN TIME 12.4 (9.2-11.2); PTT 28.2 (25-32)
[2016-09-21 05:16] LABS: CHLORIDE 107 mEq/L (99-109); POTASSIUM 4.2 mEq/L (3.7-5.4); SODIUM 142 mEq/L (136-147)
[2016-09-21 05:18] LABS: GLUCOSE 178 mg/dL (70-99)
[2016-09-21 05:19] LABS: MAGNESIUM 2.6 mg/dL (1.3-2.7); POTASSIUM 4.2 mEq/L (3.7-5.4)
[2016-09-21 05:20] LABS: ANION GAP 8 MEQ/L (2-14); CHLORIDE 121 mEq/L (99-109); SODIUM 156 mEq/L (136-147)
[2016-09-21 05:21] LABS: GLUCOSE 133 mg/dL (70-99)
[2016-09-21 05:23] LABS: ANION GAP 11 MEQ/L (2-14); TOTAL BILIRUBIN 0.8 mg/dL (0.0-1.0)
[2016-09-21 05:24] LABS: GFR ESTIMATE (CALCULATED) > 59 mL/min/; UREA NITROGEN (BUN) 14 mg/dL (9-23)
[2016-09-21 05:25] LABS: ALKALINE PHOSPHATASE 184 IU/L (3-129); GFR ESTIMATE (CALCULATED) 33 mL/min/
[2016-09-21 05:27] LABS: DIRECT BILIRUBIN 0.3 mg/dL (0.0-0.3); UREA NITROGEN (BUN) 80 mg/dL (9-23)
[2016-09-21 06:10] LABS: IRON 55 MCG/DL (35-150)
[2016-09-21 07:55] LABS: FERRITIN 381 NG/ML (22-322)
[2016-09-21 11:48] LABS: POINT-OF-CARE METER ID UU13113803
[2016-09-21 18:08] LABS: POINT-OF-CARE METER ID UU13113731
[2016-09-21 18:37] LABS: ANION GAP 12 MEQ/L (2-14); CHLORIDE 114 MEQ/L (99-109); GFR ESTIMATE (CALCULATED) 34 mL/min/; SAMPLE HEMOLYSIS CHECK 0; SAMPLE ICTERIC CHECK 0; SAMPLE LIPEMIA CHECK 0; UREA NITROGEN (BUN) 82 mg/dL (9-23)
[2016-09-21 18:39] LABS: GLUCOSE 237 mg/dL (70-99); SODIUM 146 MEQ/L (136-147)
[2016-09-22] VITALS (8 sets, daily range): BP systolic 122–156; BP diastolic 47–66
[2016-09-22 01:45] LABS: POINT-OF-CARE METER ID UU13113803
[2016-09-22 05:37] LABS: EOSINOPHIL (%) 4.5 % (0-5); EOSINOPHIL COUNT 0.7 K/uL (0-0.3); HEMATOCRIT 32.6 % (38.0-50.0); IMMATURE GRANULOCYTE (%) 0.5 % (0.0-0.7); IMMATURE GRANULOCYTE COUNT 0.1 K/uL; INSTRUMENT ABS NEUTROPHIL CT 10.7 K/uL; LYMPHOCYTE COUNT 1.9 K/uL (1.0-2.8); MCH 30.6 PG (29.0-34.0); MCHC 31.6 G/DL (30.0-36.0); MCV 96.7 FL (86-99); MEAN PLAT.VOLUME 10.7 uM^3 (9.0-12.4); MONOCYTE (%) 11.9 % (3-12); MONOCYTE COUNT 1.8 K/uL (0-0.8); NEUTROPHIL COUNT 10.7 K/uL (1.8-6.4); NRBC (%) 0.5 /100 WBC (0-0); PLATELET COUNT 431 K/uL (156-360); RBC DIS.WIDTH-CV 17.2 % (11.8-14.6); RBC DIS.WIDTH-SD 58.6 % (39-53); RED BLOOD COUNT 3.37 M/uL (4.00-5.50); WHITE BLOOD COUNT 15.2 K/uL (4.1-10.2)
[2016-09-22 06:05] LABS: ANION GAP 12 MEQ/L (2-14); CHLORIDE 117 MEQ/L (99-109); GFR ESTIMATE (CALCULATED) 34 mL/min/; GLUCOSE 131 mg/dL (70-99); MAGNESIUM 2.4 mg/dl (1.3-2.7); POTASSIUM 4.4 MEQ/L (3.7-5.4); SAMPLE HEMOLYSIS CHECK 0; SAMPLE ICTERIC CHECK 0; SAMPLE LIPEMIA CHECK 0; SODIUM 151 MEQ/L (136-147); UREA NITROGEN (BUN) 79 mg/dL (9-23)
[2016-09-22 11:51] LABS: POINT-OF-CARE METER ID UU13113803
[2016-09-22 18:18] LABS: POINT-OF-CARE METER ID UU13113731
[2016-09-22 22:57] LABS: POINT-OF-CARE METER ID UU13113803
[2016-09-23] VITALS (7 sets, daily range): BP systolic 108–154; BP diastolic 53–69
[2016-09-23 07:04] LABS: EOSINOPHIL (%) 6.8 % (0-5); EOSINOPHIL COUNT 0.8 K/uL (0-0.3); HEMATOCRIT 32.7 % (38.0-50.0); IMMATURE GRANULOCYTE (%) 0.4 % (0.0-0.7); IMMATURE GRANULOCYTE COUNT 0.1 K/uL; INSTRUMENT ABS NEUTROPHIL CT 7.8 K/uL; MCH 29.2 PG (29.0-34.0); MCHC 30.6 G/DL (30.0-36.0); MCV 95.3 FL (86-99); MEAN PLAT.VOLUME 10.6 uM^3 (9.0-12.4); MONOCYTE (%) 10.6 % (3-12); MONOCYTE COUNT 1.3 K/uL (0-0.8); NEUTROPHIL (%) 65.5 % (45-76); NEUTROPHIL COUNT 7.8 K/uL (1.8-6.4); NRBC (%) 0.3 /100 WBC (0-0); PLATELET COUNT 394 K/uL (156-360); RBC DIS.WIDTH-CV 16.6 % (11.8-14.6); RBC DIS.WIDTH-SD 56.6 % (39-53); RED BLOOD COUNT 3.43 M/uL (4.00-5.50); WHITE BLOOD COUNT 11.9 K/uL (4.1-10.2)
[2016-09-23 07:43] LABS: ANION GAP 12 MEQ/L (2-14); CHLORIDE 108 MEQ/L (99-109); GFR ESTIMATE (CALCULATED) 36 mL/min/; GLUCOSE 105 mg/dL (70-99); MAGNESIUM 2.1 mg/dl (1.3-2.7); POTASSIUM 4.6 MEQ/L (3.7-5.4); SAMPLE HEMOLYSIS CHECK 0; SAMPLE ICTERIC CHECK 0; SAMPLE LIPEMIA CHECK 0; SODIUM 139 MEQ/L (136-147); UREA NITROGEN (BUN) 71 mg/dL (9-23)
[2016-09-23 11:03] LABS: HPCA INDEX 0.14
[2016-09-23 11:43] LABS: ANTI-HEPATITIS B CORE (TOTAL) Nonreactive; HBCT INDEX 0.14
[2016-09-23 21:16] LABS: POINT-OF-CARE METER ID UU13113781
[2016-09-24 04:48] VITALS: BP 148/65
[2016-09-24 07:37] LABS: BASOPHIL COUNT 0.1 K/uL (0-0.1); EOSINOPHIL COUNT 0.7 K/uL (0-0.3); HEMATOCRIT 30.4 % (38.0-50.0); IMMATURE GRANULOCYTE (%) 0.3 % (0.0-0.7); INSTRUMENT ABS NEUTROPHIL CT 8.3 K/uL; LYMPHOCYTE COUNT 1.6 K/uL (1.0-2.8); MCH 29.5 PG (29.0-34.0); MCHC 32.2 G/DL (30.0-36.0); MCV 91.6 FL (86-99); MEAN PLAT.VOLUME 11.1 uM^3 (9.0-12.4); MONOCYTE (%) 10.1 % (3-12); MONOCYTE COUNT 1.2 K/uL (0-0.8); NEUTROPHIL (%) 69.6 % (45-76); NEUTROPHIL COUNT 8.3 K/uL (1.8-6.4); NRBC (%) 0.2 /100 WBC (0-0); PLATELET COUNT 378 K/uL (156-360); RBC DIS.WIDTH-CV 15.9 % (11.8-14.6); RBC DIS.WIDTH-SD 52.7 % (39-53); RED BLOOD COUNT 3.32 M/uL (4.00-5.50); WHITE BLOOD COUNT 11.9 K/uL (4.1-10.2)
[2016-09-24 07:48] LABS: POTASSIUM 4.2 mEq/L (3.7-5.4); SODIUM 133 mEq/L (136-147)
[2016-09-24 07:50] LABS: GLUCOSE 144 mg/dL (70-99)
[2016-09-24 07:51] LABS: ANION GAP 9 MEQ/L (2-14)
[2016-09-24 07:54] LABS: GFR ESTIMATE (CALCULATED) 33 mL/min/
[2016-09-24 07:55] LABS: UREA NITROGEN (BUN) 69 mg/dL (9-23)
[2016-09-24 08:00] VITALS: BP 146/62
[2016-09-24 08:15] LABS: CHLORIDE 103 mEq/L (99-109); MAGNESIUM 2.1 mg/dL (1.3-2.7)
[2016-09-24 11:38] VITALS: BP 132/64
[2016-09-24 15:53] VITALS: BP 120/53
[2016-09-24 19:15] VITALS: BP 123/60
[2016-09-24 23:20] VITALS: BP 129/68
[2016-09-25 03:40] VITALS: BP 131/91
[2016-09-25 05:56] LABS: EOSINOPHIL (%) 3.9 % (0-5); EOSINOPHIL COUNT 0.5 K/uL (0-0.3); HEMATOCRIT 29.2 % (38.0-50.0); IMMATURE GRANULOCYTE (%) 0.6 % (0.0-0.7); IMMATURE GRANULOCYTE COUNT 0.1 K/uL; INSTRUMENT ABS NEUTROPHIL CT 8.2 K/uL; LYMPHOCYTE COUNT 1.4 K/uL (1.0-2.8); MCHC 32.5 G/DL (30.0-36.0); MCV 92.1 FL (86-99); MEAN PLAT.VOLUME 11.2 uM^3 (9.0-12.4); MONOCYTE (%) 10.9 % (3-12); MONOCYTE COUNT 1.2 K/uL (0-0.8); NEUTROPHIL (%) 71.7 % (45-76); NEUTROPHIL COUNT 8.2 K/uL (1.8-6.4); PLATELET COUNT 335 K/uL (156-360); RBC DIS.WIDTH-CV 15.9 % (11.8-14.6); RBC DIS.WIDTH-SD 52.4 % (39-53); RED BLOOD COUNT 3.17 M/uL (4.00-5.50); WHITE BLOOD COUNT 11.4 K/uL (4.1-10.2)
[2016-09-25 06:26] LABS: ANION GAP 15 MEQ/L (2-14); CHLORIDE 101 MEQ/L (99-109); GFR ESTIMATE (CALCULATED) 34 mL/min/; GLUCOSE 137 mg/dL (70-99); MAGNESIUM 2.4 mg/dl (1.3-2.7); POTASSIUM 4.6 MEQ/L (3.7-5.4); SAMPLE HEMOLYSIS CHECK 0; SAMPLE ICTERIC CHECK 0; SAMPLE LIPEMIA CHECK 0; SODIUM 133 MEQ/L (136-147); UREA NITROGEN (BUN) 70 mg/dL (9-23)
[2016-09-25 07:16] VITALS: BP 130/76
[2016-09-25 11:52] VITALS: BP 153/80
[2016-09-25 13:37] LABS: POINT-OF-CARE METER ID UU13113781
[2016-09-25 15:26] LABS: POINT-OF-CARE METER ID UU13113781
[2016-09-25 16:20] VITALS: BP 139/66
[2016-09-25 20:31] LABS: POINT-OF-CARE METER ID UU13113781
[2016-09-25 21:14] VITALS: BP 135/91
[2016-09-25 23:27] VITALS: BP 134/70
[2016-09-26 03:33] VITALS: BP 152/77
[2016-09-26 07:00] VITALS: BP 140/82
[2016-09-26 08:32] LABS: EOSINOPHIL (%) 6.6 % (0-5); EOSINOPHIL COUNT 0.5 K/uL (0-0.3); HEMATOCRIT 30.4 % (38.0-50.0); IMMATURE GRANULOCYTE (%) 0.3 % (0.0-0.7); INSTRUMENT ABS NEUTROPHIL CT 4.8 K/uL; LYMPHOCYTE COUNT 1.2 K/uL (1.0-2.8); MCH 29.1 PG (29.0-34.0); MCHC 31.9 G/DL (30.0-36.0); MCV 91.3 FL (86-99); MEAN PLAT.VOLUME 11.2 uM^3 (9.0-12.4); MONOCYTE (%) 15.1 % (3-12); MONOCYTE COUNT 1.2 K/uL (0-0.8); NEUTROPHIL (%) 62.2 % (45-76); NEUTROPHIL COUNT 4.8 K/uL (1.8-6.4); PLATELET COUNT 324 K/uL (156-360); RBC DIS.WIDTH-CV 15.9 % (11.8-14.6); RBC DIS.WIDTH-SD 51.2 % (39-53); RED BLOOD COUNT 3.33 M/uL (4.00-5.50); WHITE BLOOD COUNT 7.8 K/uL (4.1-10.2)
[2016-09-26 08:50] LABS: CHLORIDE 106 mEq/L (99-109); SODIUM 136 mEq/L (136-147)
[2016-09-26 08:51] LABS: MAGNESIUM 2.6 mg/dL (1.3-2.7)
[2016-09-26 08:53] LABS: GLUCOSE 182 mg/dL (70-99)
[2016-09-26 08:54] LABS: ANION GAP 13 MEQ/L (2-14)
[2016-09-26 08:55] LABS: TOTAL BILIRUBIN 0.7 mg/dL (0.0-1.0)
[2016-09-26 08:57] LABS: GFR ESTIMATE (CALCULATED) 33 mL/min/
[2016-09-26 08:58] LABS: DIRECT BILIRUBIN 0.3 mg/dL (0.0-0.3); UREA NITROGEN (BUN) 71 mg/dL (9-23)
[2016-09-26 08:59] LABS: ALKALINE PHOSPHATASE 107 IU/L (3-129)
[2016-09-26 10:35] LABS: HBSG INDEX 0.17
[2016-09-26 11:00] VITALS: BP 123/74
[2016-09-26 11:56] LABS: POINT-OF-CARE USER ID ENVKC36
[2016-09-26 16:15] VITALS: BP 138/60
[2016-09-26 21:15] VITALS: BP 124/58
[2016-09-27] VITALS (7 sets, daily range): BP systolic 110–146; BP diastolic 54–78
[2016-09-27 09:27] LABS: BASOPHIL COUNT 0.1 K/uL (0-0.1); EOSINOPHIL (%) 2.3 % (0-5); EOSINOPHIL COUNT 0.3 K/uL (0-0.3); HEMATOCRIT 34.3 % (38.0-50.0); IMMATURE GRANULOCYTE (%) 0.4 % (0.0-0.7); IMMATURE GRANULOCYTE COUNT 0.1 K/uL; INSTRUMENT ABS NEUTROPHIL CT 10.1 K/uL; LYMPHOCYTE COUNT 0.6 K/uL (1.0-2.8); MCH 29.3 PG (29.0-34.0); MCHC 31.5 G/DL (30.0-36.0); MEAN PLAT.VOLUME 10.7 uM^3 (9.0-12.4); MONOCYTE (%) 10.5 % (3-12); MONOCYTE COUNT 1.3 K/uL (0-0.8); NEUTROPHIL (%) 81.6 % (45-76); NEUTROPHIL COUNT 10.1 K/uL (1.8-6.4); PLATELET COUNT 373 K/uL (156-360); RBC DIS.WIDTH-CV 16.3 % (11.8-14.6); RBC DIS.WIDTH-SD 54.5 % (39-53); RED BLOOD COUNT 3.69 M/uL (4.00-5.50); WHITE BLOOD COUNT 12.4 K/uL (4.1-10.2)
[2016-09-27 10:11] LABS: ALKALINE PHOSPHATASE 126 IU/L (3-129); ANION GAP 14 MEQ/L (2-14); CHLORIDE 111 MEQ/L (99-109); GFR ESTIMATE (CALCULATED) 34 mL/min/; GLUCOSE 87 mg/dL (70-99); MAGNESIUM 2.5 mg/dl (1.3-2.7); POTASSIUM 4.3 MEQ/L (3.7-5.4); SAMPLE HEMOLYSIS CHECK 0; SAMPLE ICTERIC CHECK 0; SAMPLE LIPEMIA CHECK 0; SODIUM 141 MEQ/L (136-147); TOTAL BILIRUBIN 0.6 MG/DL (0.0-1.0); UREA NITROGEN (BUN) 68 mg/dL (9-23)
[2016-09-28 04:59] VITALS: BP 134/74
[2016-09-28 05:59] LABS: EOSINOPHIL (%) 4.2 % (0-5); EOSINOPHIL COUNT 0.4 K/uL (0-0.3); HEMATOCRIT 32.3 % (38.0-50.0); IMMATURE GRANULOCYTE (%) 0.4 % (0.0-0.7); INSTRUMENT ABS NEUTROPHIL CT 6.5 K/uL; LYMPHOCYTE COUNT 1.4 K/uL (1.0-2.8); MCH 30.1 PG (29.0-34.0); MCHC 32.2 G/DL (30.0-36.0); MCV 93.4 FL (86-99); MEAN PLAT.VOLUME 10.9 uM^3 (9.0-12.4); MONOCYTE (%) 15.5 % (3-12); MONOCYTE COUNT 1.5 K/uL (0-0.8); NEUTROPHIL (%) 65.2 % (45-76); NEUTROPHIL COUNT 6.5 K/uL (1.8-6.4); PLATELET COUNT 383 K/uL (156-360); RBC DIS.WIDTH-CV 16.3 % (11.8-14.6); RBC DIS.WIDTH-SD 55.4 % (39-53); RED BLOOD COUNT 3.46 M/uL (4.00-5.50)
[2016-09-28 06:05] LABS: POINT-OF-CARE METER ID UU13113698
[2016-09-28 06:51] LABS: ANION GAP 11 MEQ/L (2-14); CHLORIDE 113 MEQ/L (99-109); GFR ESTIMATE (CALCULATED) 31 mL/min/; GLUCOSE 83 mg/dL (70-99); MAGNESIUM 2.6 mg/dl (1.3-2.7); SAMPLE HEMOLYSIS CHECK 0; SAMPLE ICTERIC CHECK 0; SAMPLE LIPEMIA CHECK 0; SODIUM 144 MEQ/L (136-147); UREA NITROGEN (BUN) 67 mg/dL (9-23)
[2016-09-28 08:43] VITALS: BP 88/40
[2016-09-28 09:07] LABS: ANTI-HEPATITIS A VIRUS (IGM) Nonreactive; HAV INDEX 0.22
[2016-09-28 10:34] VITALS: BP 131/62
[2016-09-28 11:59] VITALS: BP 97/59
[2016-09-28 12:26] LABS: POINT-OF-CARE METER ID UU13113781; POINT-OF-CARE USER ID ENVKC36
[2016-09-28 16:22] VITALS: BP 96/52
[2016-09-28 19:02] LABS: POINT-OF-CARE USER ID ENVKC36
[2016-09-28 20:00] VITALS: BP 128/68
[2016-09-28 23:27] LABS: POINT-OF-CARE METER ID UU13113698
[2016-09-29] VITALS (7 sets, daily range): BP systolic 110–158; BP diastolic 58–76
[2016-09-29 06:07] LABS: POINT-OF-CARE METER ID UU14174216
[2016-09-29 07:41] LABS: EOSINOPHIL (%) 6.5 % (0-5); EOSINOPHIL COUNT 0.6 K/uL (0-0.3); HEMATOCRIT 33.3 % (38.0-50.0); IMMATURE GRANULOCYTE (%) 0.2 % (0.0-0.7); INSTRUMENT ABS NEUTROPHIL CT 5.9 K/uL; LYMPHOCYTE COUNT 1.4 K/uL (1.0-2.8); MCH 29.9 PG (29.0-34.0); MCHC 30.9 G/DL (30.0-36.0); MCV 96.8 FL (86-99); MEAN PLAT.VOLUME 10.6 uM^3 (9.0-12.4); MONOCYTE (%) 12.5 % (3-12); MONOCYTE COUNT 1.1 K/uL (0-0.8); NEUTROPHIL COUNT 5.9 K/uL (1.8-6.4); PLATELET COUNT 395 K/uL (156-360); RBC DIS.WIDTH-CV 16.1 % (11.8-14.6); RBC DIS.WIDTH-SD 56.4 % (39-53); RED BLOOD COUNT 3.44 M/uL (4.00-5.50); WHITE BLOOD COUNT 9.1 K/uL (4.1-10.2)
[2016-09-29 08:08] LABS: MAGNESIUM 2.4 mg/dl (1.3-2.7)
[2016-09-29 11:57] LABS: POINT-OF-CARE METER ID UU14174216
[2016-09-29 18:45] LABS: POINT-OF-CARE METER ID UU14174216
[2016-09-30 00:14] VITALS: BP 112/58
[2016-09-30 00:16] LABS: POINT-OF-CARE METER ID UU14174216
[2016-09-30 05:21] VITALS: BP 100/60
[2016-09-30 05:36] LABS: POINT-OF-CARE METER ID UU13113698
[2016-09-30 05:42] LABS: EOSINOPHIL (%) 7.4 % (0-5); EOSINOPHIL COUNT 0.7 K/uL (0-0.3); HEMATOCRIT 35.3 % (38.0-50.0); IMMATURE GRANULOCYTE (%) 0.2 % (0.0-0.7); INSTRUMENT ABS NEUTROPHIL CT 5.5 K/uL; LYMPHOCYTE COUNT 1.7 K/uL (1.0-2.8); MCH 29.6 PG (29.0-34.0); MCHC 31.4 G/DL (30.0-36.0); MCV 94.1 FL (86-99); MEAN PLAT.VOLUME 10.7 uM^3 (9.0-12.4); MONOCYTE COUNT 1.2 K/uL (0-0.8); NEUTROPHIL (%) 60.6 % (45-76); NEUTROPHIL COUNT 5.5 K/uL (1.8-6.4); PLATELET COUNT 414 K/uL (156-360); RBC DIS.WIDTH-CV 15.9 % (11.8-14.6); RBC DIS.WIDTH-SD 54.4 % (39-53); RED BLOOD COUNT 3.75 M/uL (4.00-5.50)
[2016-09-30 06:08] LABS: MAGNESIUM 2.4 mg/dl (1.3-2.7)
[2016-09-30 07:09] VITALS: BP 150/69
[2016-09-30 11:08] VITALS: BP 169/70
[2016-09-30 12:09] LABS: POINT-OF-CARE METER ID UU13113698
[2016-09-30 15:03] VITALS: BP 153/67
[2016-09-30 19:30] VITALS: BP 160/70
[2016-10-01] VITALS (7 sets, daily range): BP systolic 112–144; BP diastolic 61–86
[2016-10-01 06:32] LABS: POINT-OF-CARE METER ID UU14174216
[2016-10-01 06:41] LABS: BASOPHIL COUNT 0.1 K/uL (0-0.1); EOSINOPHIL (%) 7.2 % (0-5); EOSINOPHIL COUNT 0.7 K/uL (0-0.3); HEMATOCRIT 37.6 % (38.0-50.0); IMMATURE GRANULOCYTE (%) 0.2 % (0.0-0.7); INSTRUMENT ABS NEUTROPHIL CT 5.7 K/uL; MCH 28.8 PG (29.0-34.0); MCHC 30.6 G/DL (30.0-36.0); MCV 94.2 FL (86-99); MEAN PLAT.VOLUME 10.6 uM^3 (9.0-12.4); MONOCYTE (%) 11.4 % (3-12); MONOCYTE COUNT 1.1 K/uL (0-0.8); NEUTROPHIL (%) 60.1 % (45-76); NEUTROPHIL COUNT 5.7 K/uL (1.8-6.4); PLATELET COUNT 403 K/uL (156-360); RBC DIS.WIDTH-CV 15.8 % (11.8-14.6); RED BLOOD COUNT 3.99 M/uL (4.00-5.50); WHITE BLOOD COUNT 9.5 K/uL (4.1-10.2)
[2016-10-01 07:14] LABS: MAGNESIUM 2.4 mg/dl (1.3-2.7)
[2016-10-01 09:10] LABS: ANION GAP 15 MEQ/L (2-14); CHLORIDE 113 MEQ/L (99-109); GFR ESTIMATE (CALCULATED) 42 mL/min/; GLUCOSE 175 mg/dL (70-99); POTASSIUM 4.7 MEQ/L (3.7-5.4); SODIUM 147 MEQ/L (136-147); UREA NITROGEN (BUN) 60 mg/dL (9-23)
[2016-10-01 19:31] LABS: ANION GAP 11 MEQ/L (2-14); CHLORIDE 112 MEQ/L (99-109); GFR ESTIMATE (CALCULATED) 42 mL/min/; GLUCOSE 212 mg/dL (70-99); POTASSIUM 4.5 MEQ/L (3.7-5.4); SAMPLE HEMOLYSIS CHECK 0; SAMPLE ICTERIC CHECK 0; SAMPLE LIPEMIA CHECK 0; SODIUM 144 MEQ/L (136-147); UREA NITROGEN (BUN) 60 mg/dL (9-23)
[2016-10-02] VITALS (8 sets, daily range): BP systolic 101–184; BP diastolic 50–84
[2016-10-02 07:06] LABS: BASOPHIL COUNT 0.1 K/uL (0-0.1); EOSINOPHIL (%) 6.5 % (0-5); EOSINOPHIL COUNT 0.6 K/uL (0-0.3); IMMATURE GRANULOCYTE (%) 0.3 % (0.0-0.7); INSTRUMENT ABS NEUTROPHIL CT 5.7 K/uL; LYMPHOCYTE COUNT 1.8 K/uL (1.0-2.8); MCH 29.1 PG (29.0-34.0); MCHC 30.8 G/DL (30.0-36.0); MCV 94.4 FL (86-99); MEAN PLAT.VOLUME 10.4 uM^3 (9.0-12.4); MONOCYTE (%) 10.1 % (3-12); MONOCYTE COUNT 0.9 K/uL (0-0.8); NEUTROPHIL (%) 63.1 % (45-76); NEUTROPHIL COUNT 5.7 K/uL (1.8-6.4); PLATELET COUNT 391 K/uL (156-360); RBC DIS.WIDTH-SD 55.1 % (39-53); RED BLOOD COUNT 4.13 M/uL (4.00-5.50); WHITE BLOOD COUNT 9.1 K/uL (4.1-10.2)
[2016-10-02 07:33] LABS: ANION GAP 11 MEQ/L (2-14); CHLORIDE 112 MEQ/L (99-109); GFR ESTIMATE (CALCULATED) 40 mL/min/; GLUCOSE 212 mg/dL (70-99); MAGNESIUM 2.4 mg/dl (1.3-2.7); POTASSIUM 4.3 MEQ/L (3.7-5.4); SAMPLE HEMOLYSIS CHECK 0; SAMPLE ICTERIC CHECK 0; SAMPLE LIPEMIA CHECK 0; SODIUM 144 MEQ/L (136-147); UREA NITROGEN (BUN) 64 mg/dL (9-23)
[2016-10-02 17:53] LABS: POINT-OF-CARE METER ID UU13113698
[2016-10-03 03:00] VITALS: BP 116/67
[2016-10-03 06:03] LABS: POINT-OF-CARE METER ID UU13113781
[2016-10-03 08:25] LABS: BASOPHIL COUNT 0.1 K/uL (0-0.1); EOSINOPHIL (%) 5.9 % (0-5); EOSINOPHIL COUNT 0.6 K/uL (0-0.3); HEMATOCRIT 39.4 % (38.0-50.0); IMMATURE GRANULOCYTE (%) 0.5 % (0.0-0.7); IMMATURE GRANULOCYTE COUNT 0.1 K/uL; INSTRUMENT ABS NEUTROPHIL CT 5.9 K/uL; LYMPHOCYTE COUNT 2.1 K/uL (1.0-2.8); MCV 93.8 FL (86-99); MEAN PLAT.VOLUME 10.6 uM^3 (9.0-12.4); MONOCYTE (%) 8.8 % (3-12); MONOCYTE COUNT 0.8 K/uL (0-0.8); NEUTROPHIL COUNT 5.9 K/uL (1.8-6.4); PLATELET COUNT 379 K/uL (156-360); RBC DIS.WIDTH-CV 16.1 % (11.8-14.6); RBC DIS.WIDTH-SD 55.3 % (39-53); WHITE BLOOD COUNT 9.6 K/uL (4.1-10.2)
[2016-10-03 08:45] VITALS: BP 124/50
[2016-10-03 08:53] LABS: MAGNESIUM 2.5 mg/dl (1.3-2.7)
[2016-10-03 11:56] LABS: POINT-OF-CARE USER ID ENVKC36
[2016-10-03 12:04] VITALS: BP 124/66
[2016-10-03 20:00] VITALS: BP 145/96
[2016-10-03 23:45] VITALS: BP 118/72
[2016-10-04 03:00] VITALS: BP 124/62
[2016-10-04 05:59] LABS: POINT-OF-CARE METER ID UU14174216
[2016-10-04 06:52] LABS: BASOPHIL COUNT 0.1 K/uL (0-0.1); EOSINOPHIL (%) 6.7 % (0-5); EOSINOPHIL COUNT 0.6 K/uL (0-0.3); HEMATOCRIT 39.3 % (38.0-50.0); IMMATURE GRANULOCYTE (%) 0.2 % (0.0-0.7); INSTRUMENT ABS NEUTROPHIL CT 5.4 K/uL; LYMPHOCYTE COUNT 2.2 K/uL (1.0-2.8); MCH 29.5 PG (29.0-34.0); MCV 94.9 FL (86-99); MEAN PLAT.VOLUME 10.5 uM^3 (9.0-12.4); MONOCYTE (%) 9.6 % (3-12); MONOCYTE COUNT 0.9 K/uL (0-0.8); NEUTROPHIL (%) 58.7 % (45-76); NEUTROPHIL COUNT 5.4 K/uL (1.8-6.4); PLATELET COUNT 336 K/uL (156-360); RBC DIS.WIDTH-CV 16.2 % (11.8-14.6); RBC DIS.WIDTH-SD 55.8 % (39-53); RED BLOOD COUNT 4.14 M/uL (4.00-5.50); WHITE BLOOD COUNT 9.2 K/uL (4.1-10.2)
[2016-10-04 07:06] LABS: ANION GAP 12 MEQ/L (2-14); CHLORIDE 111 MEQ/L (99-109); MAGNESIUM 2.6 mg/dl (1.3-2.7); POTASSIUM 4.4 MEQ/L (3.7-5.4); SAMPLE HEMOLYSIS CHECK 0; SAMPLE ICTERIC CHECK 0; SAMPLE LIPEMIA CHECK 0; SODIUM 146 MEQ/L (136-147)
[2016-10-04 07:12] LABS: GFR ESTIMATE (CALCULATED) 38 mL/min/; GLUCOSE 176 mg/dL (70-99); UREA NITROGEN (BUN) 74 mg/dL (9-23)
[2016-10-04 07:19] LABS: INTER. NORMALIZED RATIO 1.1; PROTHROMBIN TIME 11.4 (9.2-11.2); PTT 24.7 (25-32)
[2016-10-04 09:50] VITALS: BP 142/74
[2016-10-04 12:14] LABS: POINT-OF-CARE METER ID UU13113781
[2016-10-04 12:53] VITALS: BP 132/74
[2016-10-04 16:00] VITALS: BP 100/55
[2016-10-04 19:30] VITALS: BP 143/70
[2016-10-04 23:10] VITALS: BP 149/97
[2016-10-04 23:48] LABS: POINT-OF-CARE METER ID UU14174216
[2016-10-05 03:20] VITALS: BP 165/72
[2016-10-05 06:33] LABS: BASOPHIL COUNT 0.1 K/uL (0-0.1); EOSINOPHIL (%) 5.7 % (0-5); EOSINOPHIL COUNT 0.4 K/uL (0-0.3); HEMATOCRIT 39.2 % (38.0-50.0); IMMATURE GRANULOCYTE (%) 0.3 % (0.0-0.7); INSTRUMENT ABS NEUTROPHIL CT 4.4 K/uL; MCH 28.8 PG (29.0-34.0); MCHC 30.6 G/DL (30.0-36.0); MCV 94.2 FL (86-99); MEAN PLAT.VOLUME 10.4 uM^3 (9.0-12.4); MONOCYTE (%) 8.8 % (3-12); MONOCYTE COUNT 0.7 K/uL (0-0.8); NEUTROPHIL (%) 57.9 % (45-76); NEUTROPHIL COUNT 4.4 K/uL (1.8-6.4); PLATELET COUNT 316 K/uL (156-360); RBC DIS.WIDTH-CV 16.3 % (11.8-14.6); RBC DIS.WIDTH-SD 56.1 % (39-53); RED BLOOD COUNT 4.16 M/uL (4.00-5.50); WHITE BLOOD COUNT 7.5 K/uL (4.1-10.2)
[2016-10-05 07:02] LABS: ANION GAP 12 MEQ/L (2-14); CHLORIDE 115 MEQ/L (99-109); GFR ESTIMATE (CALCULATED) 38 mL/min/; GLUCOSE 202 mg/dL (70-99); MAGNESIUM 2.5 mg/dl (1.3-2.7); POTASSIUM 4.5 MEQ/L (3.7-5.4); SAMPLE HEMOLYSIS CHECK 0; SAMPLE ICTERIC CHECK 0; SAMPLE LIPEMIA CHECK 0; SODIUM 148 MEQ/L (136-147); UREA NITROGEN (BUN) 71 mg/dL (9-23)
[2016-10-05 08:33] VITALS: BP 154/70
[2016-10-05 12:57] VITALS: BP 149/67
[2016-10-05 16:09] LABS: POINT-OF-CARE METER ID UU13113819
[2016-10-05 17:40] VITALS: BP 157/71
[2016-10-05 19:11] VITALS: BP 128/79
[2016-10-05 23:00] VITALS: BP 136/78
[2016-10-06 04:11] VITALS: BP 149/79
[2016-10-06 05:31] LABS: POINT-OF-CARE METER ID UU13113698
[2016-10-06 08:29] LABS: BASOPHIL COUNT 0.1 K/uL (0-0.1); EOSINOPHIL (%) 4.7 % (0-5); EOSINOPHIL COUNT 0.5 K/uL (0-0.3); HEMATOCRIT 39.5 % (38.0-50.0); IMMATURE GRANULOCYTE (%) 0.3 % (0.0-0.7); INSTRUMENT ABS NEUTROPHIL CT 6.5 K/uL; LYMPHOCYTE COUNT 2.6 K/uL (1.0-2.8); MCH 29.9 PG (29.0-34.0); MCHC 31.1 G/DL (30.0-36.0); MCV 95.9 FL (86-99); MEAN PLAT.VOLUME 10.8 uM^3 (9.0-12.4); MONOCYTE (%) 8.6 % (3-12); MONOCYTE COUNT 0.9 K/uL (0-0.8); NEUTROPHIL (%) 61.2 % (45-76); NEUTROPHIL COUNT 6.5 K/uL (1.8-6.4); PLATELET COUNT 299 K/uL (156-360); RBC DIS.WIDTH-CV 16.3 % (11.8-14.6); RBC DIS.WIDTH-SD 56.9 % (39-53); RED BLOOD COUNT 4.12 M/uL (4.00-5.50); WHITE BLOOD COUNT 10.5 K/uL (4.1-10.2)
[2016-10-06 08:32] VITALS: BP 137/88
[2016-10-06 08:38] LABS: ANION GAP 10 MEQ/L (2-14); CHLORIDE 118 MEQ/L (99-109); GFR ESTIMATE (CALCULATED) 40 mL/min/; GLUCOSE 205 mg/dL (70-99); MAGNESIUM 2.5 mg/dl (1.3-2.7); POTASSIUM 4.5 MEQ/L (3.7-5.4); SAMPLE HEMOLYSIS CHECK 0; SAMPLE ICTERIC CHECK 0; SAMPLE LIPEMIA CHECK 0; SODIUM 149 MEQ/L (136-147); UREA NITROGEN (BUN) 70 mg/dL (9-23)
[2016-10-06 11:00] VITALS: BP 120/83
[2016-10-06 11:10] LABS: POINT-OF-CARE METER ID UU13113698
[2016-10-06 15:16] VITALS: BP 132/82
[2016-10-06 17:50] LABS: POINT-OF-CARE METER ID UU13113698
[2016-10-06 19:16] VITALS: BP 176/81
[2016-10-06 23:08] VITALS: BP 160/75
[2016-10-07 03:16] VITALS: BP 150/70
[2016-10-07 09:46] VITALS: BP 177/77
[2016-10-07 10:11] LABS: HEMATOCRIT 39.2 % (38.0-50.0); MCH 30.1 PG (29.0-34.0); MCHC 31.1 G/DL (30.0-36.0); MCV 96.8 FL (86-99); MEAN PLAT.VOLUME 10.8 uM^3 (9.0-12.4); PLATELET COUNT 271 K/uL (156-360); RBC DIS.WIDTH-CV 16.5 % (11.8-14.6); RBC DIS.WIDTH-SD 57.4 % (39-53); RED BLOOD COUNT 4.05 M/uL (4.00-5.50); WHITE BLOOD COUNT 11.3 K/uL (4.1-10.2)
[2016-10-07 10:34] LABS: ANION GAP 9 MEQ/L (2-14); CHLORIDE 117 MEQ/L (99-109); GFR ESTIMATE (CALCULATED) 36 mL/min/; GLUCOSE 185 mg/dL (70-99); SAMPLE HEMOLYSIS CHECK 0; SAMPLE ICTERIC CHECK 0; SAMPLE LIPEMIA CHECK 0; SODIUM 148 MEQ/L (136-147); UREA NITROGEN (BUN) 70 mg/dL (9-23)
[2016-10-07 12:00] VITALS: BP 157/67
[2016-10-07 16:52] LABS: POINT-OF-CARE METER ID UU14174225
[2016-10-07 17:08] VITALS: BP 128/68
[2016-10-07 21:14] LABS: POINT-OF-CARE METER ID UU14174225
[2016-10-07 23:54] VITALS: BP 127/62
[2016-10-08 06:56] LABS: HEMATOCRIT 40.7 % (38.0-50.0); MCH 28.8 PG (29.0-34.0); MCHC 30.2 G/DL (30.0-36.0); MCV 95.3 FL (86-99); PLATELET COUNT 271 K/uL (156-360); RBC DIS.WIDTH-CV 16.6 % (11.8-14.6); RBC DIS.WIDTH-SD 58.3 % (39-53); RED BLOOD COUNT 4.27 M/uL (4.00-5.50); WHITE BLOOD COUNT 10.1 K/uL (4.1-10.2)
[2016-10-08 07:17] LABS: ANION GAP 11 MEQ/L (2-14); CHLORIDE 116 MEQ/L (99-109); GFR ESTIMATE (CALCULATED) 38 mL/min/; GLUCOSE 247 mg/dL (70-99); POTASSIUM 4.4 MEQ/L (3.7-5.4); SAMPLE HEMOLYSIS CHECK 0; SAMPLE ICTERIC CHECK 0; SAMPLE LIPEMIA CHECK 0; SODIUM 150 MEQ/L (136-147); UREA NITROGEN (BUN) 70 mg/dL (9-23)
[2016-10-08 08:16] VITALS: BP 122/68
[2016-10-08 15:29] LABS: ANION GAP 9 MEQ/L (2-14); CHLORIDE 114 MEQ/L (99-109); GFR ESTIMATE (CALCULATED) 40 mL/min/; GLUCOSE 287 mg/dL (70-99); POTASSIUM 4.2 MEQ/L (3.7-5.4); SAMPLE HEMOLYSIS CHECK 0; SAMPLE ICTERIC CHECK 0; SAMPLE LIPEMIA CHECK 0; SODIUM 146 MEQ/L (136-147); UREA NITROGEN (BUN) 61 mg/dL (9-23)
[2016-10-08 15:48] VITALS: BP 147/69
[2016-10-08 16:56] LABS: POINT-OF-CARE METER ID UU14174225
[2016-10-08 21:23] LABS: POINT-OF-CARE METER ID UU13113717
[2016-10-08 23:56] VITALS: BP 121/59
[2016-10-09 06:26] LABS: HEMATOCRIT 38.9 % (38.0-50.0); MCH 28.8 PG (29.0-34.0); MCHC 30.3 G/DL (30.0-36.0); MCV 94.9 FL (86-99); PLATELET COUNT 255 K/uL (156-360); RBC DIS.WIDTH-SD 56.5 % (39-53)
[2016-10-09 06:59] LABS: ANION GAP 9 MEQ/L (2-14); CHLORIDE 112 MEQ/L (99-109); GFR ESTIMATE (CALCULATED) 42 mL/min/; GLUCOSE 248 mg/dL (70-99); POTASSIUM 4.2 MEQ/L (3.7-5.4); SAMPLE HEMOLYSIS CHECK 0; SAMPLE ICTERIC CHECK 0; SAMPLE LIPEMIA CHECK 0; SODIUM 144 MEQ/L (136-147); UREA NITROGEN (BUN) 63 mg/dL (9-23)
[2016-10-09 07:25] VITALS: BP 129/59
[2016-10-09 07:46] LABS: POINT-OF-CARE METER ID UU13113717
[2016-10-09] MEDS ORDERED: LOPRESSOR50 MG GT (11:05)
[2016-10-09] MEDS ORDERED: CALCITRIOL1 MCG/ML GT (11:05)
[2016-10-09] MEDS ORDERED: PREVACID SOLUTA30 MG GT (11:05)
[2016-10-09] MEDS ORDERED: CALCIDOL8000 UNIT/ GT (11:05)
[2016-10-09] MEDS ORDERED: NITROSTAT0.4 MG SL (11:05)
[2016-10-09] MEDS ORDERED: BRILINTA90 MG GT (11:05)
[2016-10-09] MEDS ORDERED: DUONEB 2.5-0.5 M3 ML AEROSOL (11:05)
[2016-10-09] MEDS ORDERED: NABI650T GT (11:05)
[2016-10-09] MEDS ORDERED: LEVEMIR100 UNIT/2 SC (11:05)
[2016-10-09] MEDS ORDERED: ASPIRIN81 M2 GT (11:05)
[2016-10-09] MEDS ORDERED: BUSPAR15 MG GT (11:05)
[2016-10-09] MEDS ORDERED: ARANESP40 MCG/0.4 SC (11:05)
[2016-10-09] MEDS ORDERED: ESCITALOPRAM OX10 MG GT (11:05)
[2016-10-09 12:21] LABS: POINT-OF-CARE METER ID UU14174225
[2016-10-09 15:18] VITALS: BP 126/64
== END 2016-10-09 18:28 | DRG 270 ==
LOC: EME 13:29 → EDOF 17:03 → 4WEST 17:03 → 5SOUTH 17:03 → 4EAST 17:03 → 4WEST 09-05 16:32 → 4EAST 09-23 00:24 → 5SOUTH 10-07 15:16
PROVIDERS: Emergency Medicine; Family Medicine; Hospitalist; Internal Medicine; Internal Medicine Cardiovascular Disease; Internal Medicine Critical Care Medicine; Internal Medicine Nephrology; Internal Medicine Pulmonary Disease; Psychiatry & Neurology Neurology; Specialist; Student in an Organized Health Care Education/Training Program
PROC: 027034Z Dilation of Coronary Artery, One Artery with Drug-eluting Intraluminal Device, Percutaneous Approach (ICD-10-PCS; principal; 2016-09-05)
PROC: B215YZZ Fluoroscopy of Left Heart using Other Contrast (ICD-10-PCS; principal; 2016-09-05)
PROC: 0BH18EZ Insertion of Endotracheal Airway into Trachea, Via Natural or Artificial Opening Endoscopic (ICD-10-PCS; principal; 2016-09-05)
PROC: 5A02110 Assistance with Cardiac Output using Balloon Pump, Intermittent (ICD-10-PCS; principal; 2016-09-05)
PROC: 5A1955Z Respiratory Ventilation, Greater than 96 Consecutive Hours (ICD-10-PCS; principal; 2016-09-05)
PROC: 0HBLXZZ Excision of Left Lower Leg Skin, External Approach (ICD-10-PCS; principal; 2016-09-05)
PROC: B211YZZ Fluoroscopy of Multiple Coronary Arteries using Other Contrast (ICD-10-PCS; principal; 2016-09-05)
PROC: 4A023N7 Measurement of Cardiac Sampling and Pressure, Left Heart, Percutaneous Approach (ICD-10-PCS; principal; 2016-09-05)
PROC: 02HV33Z Insertion of Infusion Device into Superior Vena Cava, Percutaneous Approach (ICD-10-PCS; principal; 2016-09-05)
PROC: 02703DZ Dilation of Coronary Artery, One Artery with Intraluminal Device, Percutaneous Approach (ICD-10-PCS; principal; 2016-09-05)
PROC: 30233N1 Transfusion of Nonautologous Red Blood Cells into Peripheral Vein, Percutaneous Approach (ICD-10-PCS; 2016-09-07)
PROC: 0DH63UZ Insertion of Feeding Device into Stomach, Percutaneous Approach (ICD-10-PCS; 2016-10-05)
DX: I21.4 Non-ST elevation (NSTEMI) myocardial infarction (principal); J18.9 Pneumonia, unspecified organism; R32 Unspecified urinary incontinence; E11.65 Type 2 diabetes mellitus with hyperglycemia; Z89.431 Acquired absence of right foot; J96.20 Acute and chronic respiratory failure, unspecified whether with hypoxia or hypercapnia; R57.0 Cardiogenic shock; E87.2 Acidosis; E87.0 Hyperosmolality and hypernatremia; E11.22 Type 2 diabetes mellitus with diabetic chronic kidney disease; I48.0 Paroxysmal atrial fibrillation; Z85.51 Personal history of malignant neoplasm of bladder; I25.10 Atherosclerotic heart disease of native coronary artery without angina pectoris; I25.5 Ischemic cardiomyopathy; Z86.73 Personal history of transient ischemic attack (TIA), and cerebral infarction without residual deficits; I44.7 Left bundle-branch block, unspecified; N17.0 Acute kidney failure with tubular necrosis; T50.8X5A Adverse effect of diagnostic agents, initial encounter; Y92.239 Unspecified place in hospital as the place of occurrence of the external cause; N18.4 Chronic kidney disease, stage 4 (severe); E78.5 Hyperlipidemia, unspecified; N40.1 Benign prostatic hyperplasia with lower urinary tract symptoms; R33.8 Other retention of urine; E11.21 Type 2 diabetes mellitus with diabetic nephropathy; I65.22 Occlusion and stenosis of left carotid artery; I13.10 Hypertensive heart and chronic kidney disease without heart failure, with stage 1 through stage 4 chronic kidney disease, or unspecified chronic kidney disease; L84 Corns and callosities; J44.0 Chronic obstructive pulmonary disease with (acute) lower respiratory infection; D63.1 Anemia in chronic kidney disease; J96.21 Acute and chronic respiratory failure with hypoxia; E87.6 Hypokalemia; J69.0 Pneumonitis due to inhalation of food and vomit; G93.41 Metabolic encephalopathy; R13.10 Dysphagia, unspecified
CPT/HCPCS: 36600; 36620; 43760; 70450; 70551; 71010; 71020; 71250; 74020; 76705; 76937; 80048; 80048 91; 80053; 80069; 80076; 81003; 82140; 82306; 82330; 82550; 82550 91; 82553; 82570; 82607; 82728; 82803; 82948; 83540; 83605; 83735; 83880; 83970; 84100; 84132 91; 84145 90; 84156; 84450; 84460; 84466; 84478; 84484; 85014; 85018; 85025; 85025 91; 85027; 85347; 85610; 85730; 86704; 86708 90; 86709; 86803; 86900; 86901; 86920; 87040; 87070; 87077; 87086; 87186; 87205; 87340; 87449; 87493; 87641; 92526 GN; 92610 GN; 93005; 93306; 93926; 93970; 94002; 94003; 94640; 94640 76; 94644; 94760; 94799; 95819; 97530 GO; 97530 GP; 99202; 99281; 99285; A6260; C1725; C1753; C1769; C1874; C1887; C1894; C9113; J0360; J0456; J0461; J0690; J0696; J0744; J0881; J1160; J1630; J1644; J1815; J1940; J2060; J2250; J2405; J2543; J2704; J3010; J3246; J3480; J7030; J7040; J7050; J7070; J7120; J7608; P9016; P9047

== ENCOUNTER 2016-12-16 12:53 | Inpatient (IN) | payer OTHER, BC ==
[~2016-12-16] VITALS: Ht 175.3 cm; Wt 75.3 kg
[~2016-12-16 12:53] MED LIST changes: +ARANESP40 MCG/0.4 SC; +ASPIRIN81 M2 GT; +BRILINTA90 MG GT; +BUSPAR15 MG GT; +CALCIDOL8000 UNIT/ GT; +CALCITRIOL1 MCG/ML GT; +CEPHALEXIN250 MG PO; +DUONEB 2.5-0.5 M3 ML AEROSOL; +ESCITALOPRAM OX10 MG GT; +LANTUS 3 M100 UNITS1 SC; +LOPRESSOR50 MG GT; +NABI650T GT; +NITROSTAT0.4 MG SL; +NORVASC10 MG PO; +PREVACID SOLUTA30 MG GT
[2016-12-16 13:55] LABS: HEMATOCRIT 30.7 % (38.0-50.0); MCH 28.5 PG (29.0-34.0); MCHC 31.6 G/DL (30.0-36.0); MCV 90.3 FL (86-99); MEAN PLAT.VOLUME 10.8 uM^3 (9.0-12.4); NRBC (%) 0.3 /100 WBC (0-0); PLATELET COUNT 325 K/uL (156-360); RBC DIS.WIDTH-CV 15.9 % (11.8-14.6); RBC DIS.WIDTH-SD 50.9 % (39-53)
[2016-12-16 14:04] LABS: CHLORIDE 104 mEq/L (99-109); POTASSIUM 4.6 mEq/L (3.7-5.4); SODIUM 134 mEq/L (136-147)
[2016-12-16 14:06] LABS: GLUCOSE 221 mg/dL (70-99)
[2016-12-16 14:07] LABS: ANION GAP 12 MEQ/L (2-14)
[2016-12-16 14:10] LABS: GFR ESTIMATE (CALCULATED) 34 mL/min/
[2016-12-16 14:11] LABS: UREA NITROGEN (BUN) 44 mg/dL (9-23)
[2016-12-16 14:55] LABS: ADD MIUA? YES; BILIRUBIN NEGATIVE; BLOOD NEGATIVE; COLOR YELLOW ((YELLOW)); GLUCOSE (STRIP) NEGATIVE; KETONES NEGATIVE; LEUKOCYTES NEGATIVE; NITRITE NEGATIVE; PROTEIN (STRIP) 100; SPECIFIC GRAVITY 1.013 (1.000-1.030)
[2016-12-16 14:58] LABS: BACTERIA RARE /HPF; CALCIUM OXALATE CRYSTALS 1+ /HPF; EPITHELIAL CELLS RARE /HPF; MUCUS TRACE /LPF; RED BLOOD CELLS 0-5 /HPF (0-5); UCUL ADDED? NO; WHITE BLOOD CELLS 0-5 /HPF (0-5)
[2016-12-16 15:04] LABS: TROP-I INTERPRETATION NEGATIVE; TROPONIN-I 0.03 ng/mL (0.0-0.30)
[2016-12-16] MEDS ORDERED: LEVEMIR100 UNIT/2 SC (17:16)
[2016-12-16] MEDS ORDERED: PROTONIX40 M1 GT (17:18)
[2016-12-16] MEDS ORDERED: TRIAMCINOLONE A15 GM TP (17:19)
[2016-12-16] MEDS ORDERED: NORVASC10 MG PO (17:20)
[2016-12-16] MEDS ORDERED: ELIQUIS5 MG PO (17:21)
[2016-12-16] MEDS ORDERED: ZOCOR10 MG PO (17:22)
[2016-12-16] MEDS ORDERED: LIPITOR80 MG GT (17:22)
[2016-12-16] MEDS ORDERED: ZESTRIL5 MG GT (17:23)
[2016-12-16] MEDS ORDERED: PACERONE200 MG GT (17:25)
[2016-12-16] MEDS ORDERED: KEFLEX500 MG PO (17:27)
[2016-12-16 18:08] VITALS: BP 144/73
[2016-12-16 22:52] VITALS: BP 162/79
[2016-12-16 23:13] LABS: POINT-OF-CARE METER ID UU13113725
[2016-12-17 05:57] LABS: POINT-OF-CARE METER ID UU13113725
[2016-12-17 07:18] LABS: EOSINOPHIL (%) 1.7 % (0-5); EOSINOPHIL COUNT 0.2 K/uL (0-0.3); HEMATOCRIT 31.1 % (38.0-50.0); IMMATURE GRANULOCYTE (%) 0.4 % (0.0-0.7); INSTRUMENT ABS NEUTROPHIL CT 7.5 K/uL; LYMPHOCYTE COUNT 2.2 K/uL (1.0-2.8); MCH 29.5 PG (29.0-34.0); MCHC 32.2 G/DL (30.0-36.0); MCV 91.7 FL (86-99); MEAN PLAT.VOLUME 10.9 uM^3 (9.0-12.4); MONOCYTE (%) 11.3 % (3-12); MONOCYTE COUNT 1.3 K/uL (0-0.8); NEUTROPHIL (%) 66.5 % (45-76); NEUTROPHIL COUNT 7.5 K/uL (1.8-6.4); NRBC (%) 0.2 /100 WBC (0-0); PLATELET COUNT 296 K/uL (156-360); RBC DIS.WIDTH-CV 16.2 % (11.8-14.6); RBC DIS.WIDTH-SD 51.9 % (39-53); RED BLOOD COUNT 3.39 M/uL (4.00-5.50); WHITE BLOOD COUNT 11.2 K/uL (4.1-10.2)
[2016-12-17 07:22] VITALS: BP 147/70
[2016-12-17 07:40] LABS: ANION GAP 11 MEQ/L (2-14); CHLORIDE 107 MEQ/L (99-109); GFR ESTIMATE (CALCULATED) 40 mL/min/; GLUCOSE 160 mg/dL (70-99); POTASSIUM 4.9 MEQ/L (3.7-5.4); SAMPLE HEMOLYSIS CHECK 0; SAMPLE ICTERIC CHECK 0; SAMPLE LIPEMIA CHECK 0; SODIUM 134 MEQ/L (136-147); UREA NITROGEN (BUN) 42 mg/dL (9-23)
[2016-12-17 10:27] LABS: INTERNAL CONTROL VALID? YES
[2016-12-17 11:51] LABS: UR CREATININE CONCENTRATION 77.2 MG/DL
[2016-12-17 12:45] LABS: METH RESISTANT S AUREUS PCR POSITIVE (NEGATIVE)
[2016-12-17 12:47] LABS: PROBE CHECK PASS
[2016-12-17 12:59] VITALS: BP 160/82
[2016-12-17 15:42] VITALS: BP 139/66
[2016-12-17 23:12] LABS: POINT-OF-CARE METER ID UU13113725
[2016-12-18 00:25] VITALS: BP 118/65
[2016-12-18 03:43] VITALS: BP 141/75
[2016-12-18 05:38] LABS: POINT-OF-CARE METER ID UU13113725
[2016-12-18 06:32] LABS: ANION GAP 12 MEQ/L (2-14); CHLORIDE 108 MEQ/L (99-109); GFR ESTIMATE (CALCULATED) 38 mL/min/; POTASSIUM 4.2 MEQ/L (3.7-5.4); SAMPLE HEMOLYSIS CHECK 0; SAMPLE ICTERIC CHECK 0; SAMPLE LIPEMIA CHECK 0; SODIUM 137 MEQ/L (136-147); UREA NITROGEN (BUN) 39 mg/dL (9-23); URIC ACID 5.8 mg/dL (3.1-9.2)
[2016-12-18 06:38] LABS: GLUCOSE 65 mg/dL (70-99)
[2016-12-18 07:36] VITALS: BP 142/70
[2016-12-18 08:22] LABS: INTACT PARATHYROID HORMONE 150 pg/mL (10-69)
[2016-12-18 10:31] VITALS: BP 145/76
[2016-12-18 11:42] LABS: POINT-OF-CARE METER ID UU13113725
[2016-12-18 14:52] LABS: CARBON DIOXIDE (BICARBONATE) 18.3 MEQ/L (20-31)
[2016-12-18 16:03] VITALS: BP 136/73
[2016-12-18 16:31] LABS: POINT-OF-CARE METER ID UU13113725
[2016-12-18 20:26] VITALS: BP 120/70
[2016-12-18 21:40] LABS: POINT-OF-CARE METER ID UU13113725
[2016-12-19 00:18] VITALS: BP 119/68
[2016-12-19 06:11] LABS: EOSINOPHIL COUNT 0.2 K/uL (0-0.3); HEMATOCRIT 29.3 % (38.0-50.0); IMMATURE GRANULOCYTE (%) 0.4 % (0.0-0.7); IMMATURE GRANULOCYTE COUNT 0.1 K/uL; INSTRUMENT ABS NEUTROPHIL CT 7.3 K/uL; LYMPHOCYTE COUNT 2.7 K/uL (1.0-2.8); MCH 29.4 PG (29.0-34.0); MCHC 32.1 G/DL (30.0-36.0); MCV 91.6 FL (86-99); MEAN PLAT.VOLUME 10.7 uM^3 (9.0-12.4); MONOCYTE (%) 12.4 % (3-12); MONOCYTE COUNT 1.5 K/uL (0-0.8); NEUTROPHIL COUNT 7.3 K/uL (1.8-6.4); NRBC (%) 0.6 /100 WBC (0-0); PLATELET COUNT 283 K/uL (156-360); RBC DIS.WIDTH-CV 17.2 % (11.8-14.6); RBC DIS.WIDTH-SD 54.7 % (39-53); WHITE BLOOD COUNT 11.8 K/uL (4.1-10.2)
[2016-12-19 06:36] LABS: ANION GAP 12 MEQ/L (2-14); CHLORIDE 108 MEQ/L (99-109); GFR ESTIMATE (CALCULATED) 34 mL/min/; GLUCOSE 44 mg/dL (70-99); POTASSIUM 4.4 MEQ/L (3.7-5.4); SAMPLE HEMOLYSIS CHECK 0; SAMPLE ICTERIC CHECK 0; SAMPLE LIPEMIA CHECK 0; SODIUM 136 MEQ/L (136-147); UREA NITROGEN (BUN) 38 mg/dL (9-23)
[2016-12-19 06:43] LABS: POINT-OF-CARE METER ID UU13113725
[2016-12-19 07:50] LABS: Estimated Average Glucose 169 mg/dL (70-123); HEMOGLOBIN A1c (GLYCOHEMOGLOB) 7.5 % HGB (Below 5.7)
[2016-12-19 08:04] VITALS: BP 136/66
[2016-12-19 11:24] VITALS: BP 124/68
[2016-12-19 11:26] LABS: URINE TOTAL PROTEIN 73 MG/DL (0-10)
[2016-12-19 16:15] VITALS: BP 132/70
[2016-12-19 20:00] VITALS: BP 140/70
[2016-12-20 00:18] VITALS: BP 138/67
[2016-12-20 04:15] VITALS: BP 135/68
[2016-12-20 05:47] LABS: EOSINOPHIL (%) 3.2 % (0-5); EOSINOPHIL COUNT 0.4 K/uL (0-0.3); HEMATOCRIT 29.7 % (38.0-50.0); IMMATURE GRANULOCYTE (%) 0.4 % (0.0-0.7); IMMATURE GRANULOCYTE COUNT 0.1 K/uL; INSTRUMENT ABS NEUTROPHIL CT 7.7 K/uL; LYMPHOCYTE COUNT 2.2 K/uL (1.0-2.8); MCH 29.7 PG (29.0-34.0); MCV 92.8 FL (86-99); MEAN PLAT.VOLUME 10.9 uM^3 (9.0-12.4); MONOCYTE (%) 13.8 % (3-12); MONOCYTE COUNT 1.7 K/uL (0-0.8); NEUTROPHIL (%) 64.1 % (45-76); NEUTROPHIL COUNT 7.7 K/uL (1.8-6.4); NRBC (%) 0.8 /100 WBC (0-0); PLATELET COUNT 262 K/uL (156-360); RBC DIS.WIDTH-CV 17.2 % (11.8-14.6); RBC DIS.WIDTH-SD 55.5 % (39-53); WHITE BLOOD COUNT 11.9 K/uL (4.1-10.2)
[2016-12-20 06:30] LABS: ANION GAP 11 MEQ/L (2-14); CHLORIDE 105 MEQ/L (99-109); GFR ESTIMATE (CALCULATED) 26 mL/min/; POTASSIUM 5.1 MEQ/L (3.7-5.4); SAMPLE HEMOLYSIS CHECK 0; SAMPLE ICTERIC CHECK 0; SAMPLE LIPEMIA CHECK 0; SODIUM 133 MEQ/L (136-147); UREA NITROGEN (BUN) 43 mg/dL (9-23)
[2016-12-20 06:30] LABS: POINT-OF-CARE METER ID UU13113725
[2016-12-20 06:32] LABS: GLUCOSE 97 mg/dL (70-99)
[2016-12-20 08:39] VITALS: BP 126/80
[2016-12-20 10:16] LABS: UR CREATININE CONCENTRATION 151.5 MG/DL
[2016-12-20 11:13] VITALS: BP 110/70
[2016-12-20 13:16] LABS: IFE GEL NO. 99-2
[2016-12-20 13:17] LABS: IFE GEL NO. 99-4
[2016-12-20 13:26] LABS: ALKALINE PHOSPHATASE 543 IU/L (3-129); DIRECT BILIRUBIN 0.3 mg/dL (0.0-0.3); LIPASE 23 U/L (1.0-51.0); TOTAL BILIRUBIN 0.9 MG/DL (0.0-1.0)
[2016-12-20 16:22] LABS: INTERNAL CONTROL VALID? YES
[2016-12-20 16:31] VITALS: BP 128/80
[2016-12-20 17:08] LABS: INTERNAL CONTROL VALID? YES
[2016-12-20 17:24] LABS: C DIFF TOXIN NEGATIVE (NEGATIVE)
[2016-12-20 17:43] LABS: PROBE CHECK PASS; SPECIMEN PROCESSING CONTROL PASS
[2016-12-20 21:43] LABS: POINT-OF-CARE METER ID UU13113725
[2016-12-21 04:52] LABS: POINT-OF-CARE METER ID UU13113725
[2016-12-21 05:24] LABS: POINT-OF-CARE METER ID UU13113725
[2016-12-21 05:57] LABS: POINT-OF-CARE METER ID UU13113725
[2016-12-21 06:26] LABS: ANION GAP 13 MEQ/L (2-14); CHLORIDE 104 MEQ/L (99-109); POTASSIUM 4.8 MEQ/L (3.7-5.4); SAMPLE HEMOLYSIS CHECK 0; SAMPLE ICTERIC CHECK 0; SAMPLE LIPEMIA CHECK 0; SODIUM 133 MEQ/L (136-147)
[2016-12-21 06:34] LABS: GFR ESTIMATE (CALCULATED) 25 mL/min/; GLUCOSE 65 mg/dL (70-99); UREA NITROGEN (BUN) 45 mg/dL (9-23)
[2016-12-21 07:29] LABS: ALKALINE PHOSPHATASE 536 IU/L (3-129); DIRECT BILIRUBIN 0.4 mg/dL (0.0-0.3)
[2016-12-21 08:13] LABS: HEMATOCRIT 30.1 % (38.0-50.0); MCH 30.2 PG (29.0-34.0); MCHC 32.6 G/DL (30.0-36.0); MCV 92.9 FL (86-99); MEAN PLAT.VOLUME 11.4 uM^3 (9.0-12.4); NRBC (%) 0.5 /100 WBC (0-0); PLATELET COUNT 234 K/uL (156-360); RBC DIS.WIDTH-CV 17.7 % (11.8-14.6); RBC DIS.WIDTH-SD 57.5 % (39-53); RED BLOOD COUNT 3.24 M/uL (4.00-5.50); WHITE BLOOD COUNT 10.4 K/uL (4.1-10.2)
[2016-12-21 08:16] VITALS: BP 145/67
[2016-12-21 11:36] LABS: POINT-OF-CARE METER ID UU13113725
[2016-12-21 15:53] LABS: POINT-OF-CARE METER ID UU13113725
[2016-12-21 16:29] VITALS: BP 129/62
[2016-12-21 20:50] VITALS: BP 158/77
[2016-12-21 21:11] LABS: POINT-OF-CARE USER ID STWHLR41
[2016-12-22 00:29] VITALS: BP 120/90
[2016-12-22 05:48] LABS: POINT-OF-CARE METER ID UU13113725; POINT-OF-CARE USER ID STWHLR41
[2016-12-22 06:35] LABS: EOSINOPHIL COUNT 0.2 K/uL (0-0.3); HEMATOCRIT 30.2 % (38.0-50.0); IMMATURE GRANULOCYTE (%) 0.4 % (0.0-0.7); INSTRUMENT ABS NEUTROPHIL CT 7.1 K/uL; LYMPHOCYTE COUNT 1.5 K/uL (1.0-2.8); MCH 28.7 PG (29.0-34.0); MCHC 31.1 G/DL (30.0-36.0); MCV 92.1 FL (86-99); MONOCYTE (%) 13.5 % (3-12); MONOCYTE COUNT 1.4 K/uL (0-0.8); NEUTROPHIL (%) 69.4 % (45-76); NEUTROPHIL COUNT 7.1 K/uL (1.8-6.4); NRBC (%) 0.5 /100 WBC (0-0); PLATELET COUNT 234 K/uL (156-360); RBC DIS.WIDTH-CV 17.8 % (11.8-14.6); RBC DIS.WIDTH-SD 57.5 % (39-53); RED BLOOD COUNT 3.28 M/uL (4.00-5.50); WHITE BLOOD COUNT 10.2 K/uL (4.1-10.2)
[2016-12-22 07:02] LABS: ANION GAP 14 MEQ/L (2-14); CHLORIDE 103 MEQ/L (99-109); GFR ESTIMATE (CALCULATED) 23 mL/min/; GLUCOSE 78 mg/dL (70-99); POTASSIUM 4.8 MEQ/L (3.7-5.4); SAMPLE HEMOLYSIS CHECK 0; SAMPLE ICTERIC CHECK 0; SAMPLE LIPEMIA CHECK 0; SODIUM 132 MEQ/L (136-147); UREA NITROGEN (BUN) 49 mg/dL (9-23)
[2016-12-22 07:13] LABS: ALKALINE PHOSPHATASE 568 IU/L (3-129); DIRECT BILIRUBIN 0.4 mg/dL (0.0-0.3); TOTAL BILIRUBIN 0.9 MG/DL (0.0-1.0)
[2016-12-22 07:50] VITALS: BP 130/80
[2016-12-22 11:14] LABS: POINT-OF-CARE METER ID UU13113725
[2016-12-22 16:32] VITALS: BP 128/76
[2016-12-22 16:33] LABS: POINT-OF-CARE METER ID UU13113725
[2016-12-22 16:37] LABS: IRON 50 MCG/DL (35-150)
[2016-12-22 22:45] VITALS: BP 121/61
[2016-12-23 07:22] VITALS: BP 121/58
[2016-12-23 09:07] LABS: HEMATOCRIT 29.7 % (38.0-50.0); MCH 28.9 PG (29.0-34.0); MCV 90.3 FL (86-99); MEAN PLAT.VOLUME 10.6 uM^3 (9.0-12.4); NRBC (%) 0.3 /100 WBC (0-0); PLATELET COUNT 216 K/uL (156-360); RBC DIS.WIDTH-CV 17.9 % (11.8-14.6); RBC DIS.WIDTH-SD 57.4 % (39-53); RED BLOOD COUNT 3.29 M/uL (4.00-5.50)
[2016-12-23 09:16] LABS: CHLORIDE 101 mEq/L (99-109); POTASSIUM 4.9 mEq/L (3.7-5.4); SODIUM 130 mEq/L (136-147)
[2016-12-23 09:18] LABS: GLUCOSE 90 mg/dL (70-99)
[2016-12-23 09:19] LABS: ANION GAP 13 MEQ/L (2-14)
[2016-12-23 09:21] LABS: GFR ESTIMATE (CALCULATED) 20 mL/min/
[2016-12-23 09:22] LABS: UREA NITROGEN (BUN) 54 mg/dL (9-23)
[2016-12-23 09:24] LABS: CHLORIDE 103 mEq/L (99-109); SODIUM 132 mEq/L (136-147)
[2016-12-23 09:27] LABS: GLUCOSE 90 mg/dL (70-99)
[2016-12-23 09:28] LABS: ANION GAP 13 MEQ/L (2-14); TOTAL BILIRUBIN 0.9 mg/dL (0.0-1.0)
[2016-12-23 09:30] LABS: ALKALINE PHOSPHATASE 529 IU/L (3-129); GFR ESTIMATE (CALCULATED) 18 mL/min/
[2016-12-23 09:31] LABS: UREA NITROGEN (BUN) 55 mg/dL (9-23)
[2016-12-23 10:58] VITALS: BP 107/58
[2016-12-23 11:18] LABS: UR CREATININE CONCENTRATION 116.3 MG/DL
[2016-12-23 11:22] LABS: HBSG INDEX 0.18
[2016-12-23 11:23] LABS: ANTI-HEPATITIS A VIRUS (IGM) Nonreactive; HAV INDEX 0.23; HPCA INDEX 0.12
[2016-12-23 11:24] LABS: ANTI-HEPATITIS B CORE (IGM) Nonreactive; HBC IgM INDEX 0.06
[2016-12-23 11:37] LABS: POINT-OF-CARE METER ID UU13113725
[2016-12-23 15:30] VITALS: BP 115/58
[2016-12-23 15:54] LABS: POINT-OF-CARE METER ID UU13113725
[2016-12-23 20:51] LABS: POINT-OF-CARE METER ID UU13113725; POINT-OF-CARE USER ID 608261329
[2016-12-23 22:52] VITALS: BP 105/59
[2016-12-24 05:50] LABS: POINT-OF-CARE METER ID UU13113725
[2016-12-24 06:46] LABS: INTER. NORMALIZED RATIO 3.3; PROTHROMBIN TIME 37.6 SEC (10.2-12.9)
[2016-12-24 06:49] LABS: PTT 31.9 SEC (25-37)
[2016-12-24 06:55] LABS: ANION GAP 12 MEQ/L (2-14); CHLORIDE 101 MEQ/L (99-109); GFR ESTIMATE (CALCULATED) 16 mL/min/; GLUCOSE 92 mg/dL (70-99); POTASSIUM 5.1 MEQ/L (3.7-5.4); SAMPLE HEMOLYSIS CHECK 0; SAMPLE ICTERIC CHECK 0; SAMPLE LIPEMIA CHECK 0; SODIUM 132 MEQ/L (136-147); UREA NITROGEN (BUN) 58 mg/dL (9-23)
[2016-12-24 07:41] VITALS: BP 109/5
[2016-12-24 08:47] LABS: ALKALINE PHOSPHATASE 453 IU/L (3-129); DIRECT BILIRUBIN 0.3 mg/dL (0.0-0.3); TOTAL BILIRUBIN 0.8 MG/DL (0.0-1.0)
[2016-12-24 11:35] LABS: POINT-OF-CARE METER ID UU13113725
[2016-12-24 16:16] VITALS: BP 121/76
[2016-12-24 16:51] LABS: POINT-OF-CARE METER ID UU13113725
[2016-12-24 20:13] VITALS: BP 116/59
[2016-12-24 21:36] LABS: POINT-OF-CARE METER ID UU13113725
[2016-12-24 22:55] VITALS: BP 124/61
[2016-12-25 01:45] LABS: POINT-OF-CARE METER ID UU13113725
[2016-12-25 04:22] VITALS: BP 119/65
[2016-12-25 06:01] LABS: EOSINOPHIL (%) 2.2 % (0-5); EOSINOPHIL COUNT 0.2 K/uL (0-0.3); HEMATOCRIT 29.7 % (38.0-50.0); IMMATURE GRANULOCYTE (%) 0.3 % (0.0-0.7); INSTRUMENT ABS NEUTROPHIL CT 6.4 K/uL; LYMPHOCYTE COUNT 1.8 K/uL (1.0-2.8); MCH 28.9 PG (29.0-34.0); MCV 90.3 FL (86-99); MEAN PLAT.VOLUME 10.9 uM^3 (9.0-12.4); MONOCYTE (%) 18.9 % (3-12); NEUTROPHIL (%) 60.8 % (45-76); NEUTROPHIL COUNT 6.4 K/uL (1.8-6.4); PLATELET COUNT 215 K/uL (156-360); RBC DIS.WIDTH-CV 18.2 % (11.8-14.6); RBC DIS.WIDTH-SD 59.7 % (39-53); RED BLOOD COUNT 3.29 M/uL (4.00-5.50); WHITE BLOOD COUNT 10.5 K/uL (4.1-10.2)
[2016-12-25 06:19] LABS: POINT-OF-CARE METER ID UU13113725
[2016-12-25 06:27] LABS: ANION GAP 11 MEQ/L (2-14); CHLORIDE 101 MEQ/L (99-109); GFR ESTIMATE (CALCULATED) 17 mL/min/; GLUCOSE 73 mg/dL (70-99); INTER. NORMALIZED RATIO 2.5; POTASSIUM 4.9 MEQ/L (3.7-5.4); SAMPLE HEMOLYSIS CHECK 0; SAMPLE ICTERIC CHECK 0; SAMPLE LIPEMIA CHECK 0; SODIUM 133 MEQ/L (136-147); UREA NITROGEN (BUN) 60 mg/dL (9-23)
[2016-12-25 06:30] LABS: PTT 32.1 SEC (25-37)
[2016-12-25 06:40] LABS: ALKALINE PHOSPHATASE 406 IU/L (3-129); ANION GAP 12 MEQ/L (2-14); CHLORIDE 101 MEQ/L (99-109); GFR ESTIMATE (CALCULATED) 17 mL/min/; GLUCOSE 72 mg/dL (70-99); POTASSIUM 4.9 MEQ/L (3.7-5.4); SAMPLE HEMOLYSIS CHECK 0; SAMPLE ICTERIC CHECK 0; SAMPLE LIPEMIA CHECK 0; SODIUM 133 MEQ/L (136-147); TOTAL BILIRUBIN 0.9 MG/DL (0.0-1.0); UREA NITROGEN (BUN) 61 mg/dL (9-23)
[2016-12-25 08:01] VITALS: BP 143/77
[2016-12-25 11:23] LABS: POINT-OF-CARE METER ID UU13113725
[2016-12-25 16:15] VITALS: BP 133/65
[2016-12-25 16:46] LABS: POINT-OF-CARE METER ID UU13113725
[2016-12-25 19:10] VITALS: BP 125/76
[2016-12-25 20:50] LABS: POINT-OF-CARE METER ID UU13113725
[2016-12-25 22:37] VITALS: BP 127/58
[2016-12-26 02:55] VITALS: BP 137/63
[2016-12-26 06:02] LABS: POINT-OF-CARE METER ID UU13113725
[2016-12-26 06:38] LABS: EOSINOPHIL (%) 2.7 % (0-5); EOSINOPHIL COUNT 0.3 K/uL (0-0.3); HEMATOCRIT 28.6 % (38.0-50.0); IMMATURE GRANULOCYTE (%) 0.4 % (0.0-0.7); INSTRUMENT ABS NEUTROPHIL CT 6.4 K/uL; LYMPHOCYTE COUNT 1.6 K/uL (1.0-2.8); MCH 29.8 PG (29.0-34.0); MCHC 32.9 G/DL (30.0-36.0); MCV 90.8 FL (86-99); MEAN PLAT.VOLUME 11.5 uM^3 (9.0-12.4); MONOCYTE (%) 15.4 % (3-12); MONOCYTE COUNT 1.5 K/uL (0-0.8); NEUTROPHIL (%) 64.9 % (45-76); NEUTROPHIL COUNT 6.4 K/uL (1.8-6.4); PLATELET COUNT 214 K/uL (156-360); RBC DIS.WIDTH-CV 18.2 % (11.8-14.6); RBC DIS.WIDTH-SD 59.1 % (39-53); RED BLOOD COUNT 3.15 M/uL (4.00-5.50); WHITE BLOOD COUNT 9.8 K/uL (4.1-10.2)
[2016-12-26 06:46] LABS: INTER. NORMALIZED RATIO 1.9; PROTHROMBIN TIME 21.1 SEC (10.2-12.9)
[2016-12-26 06:49] LABS: PTT 32.3 SEC (25-37)
[2016-12-26 07:15] LABS: ALKALINE PHOSPHATASE 388 IU/L (3-129); ANION GAP 13 MEQ/L (2-14); CHLORIDE 99 MEQ/L (99-109); GFR ESTIMATE (CALCULATED) 18 mL/min/; POTASSIUM 5.1 MEQ/L (3.7-5.4); SAMPLE HEMOLYSIS CHECK 0; SAMPLE ICTERIC CHECK 0; SAMPLE LIPEMIA CHECK 0; SODIUM 131 MEQ/L (136-147); UREA NITROGEN (BUN) 62 mg/dL (9-23)
[2016-12-26 07:23] LABS: GLUCOSE 126 mg/dL (70-99); TOTAL BILIRUBIN 1.2 MG/DL (0.0-1.0)
[2016-12-26 08:09] VITALS: BP 162/79
[2016-12-26 11:42] VITALS: BP 150/79
[2016-12-26 11:51] LABS: POINT-OF-CARE METER ID UU13113725
[2016-12-26 15:41] LABS: POINT-OF-CARE METER ID UU13113725
[2016-12-26 15:57] VITALS: BP 132/78
[2016-12-26 22:05] LABS: POINT-OF-CARE METER ID UU13113725
[2016-12-27 00:19] VITALS: BP 148/84
[2016-12-27 06:18] LABS: POINT-OF-CARE METER ID UU13113725
[2016-12-27 06:53] LABS: INTER. NORMALIZED RATIO 1.8; PROTHROMBIN TIME 19.8 SEC (10.2-12.9)
[2016-12-27 06:55] LABS: PTT 30.7 SEC (25-37)
[2016-12-27 07:13] LABS: ALKALINE PHOSPHATASE 328 IU/L (3-129); ANION GAP 14 MEQ/L (2-14); CHLORIDE 102 MEQ/L (99-109); GFR ESTIMATE (CALCULATED) 20 mL/min/; GLUCOSE 130 mg/dL (70-99); POTASSIUM 4.9 MEQ/L (3.7-5.4); SAMPLE HEMOLYSIS CHECK 0; SAMPLE ICTERIC CHECK 0; SAMPLE LIPEMIA CHECK 0; SODIUM 132 MEQ/L (136-147); TOTAL BILIRUBIN 1.1 MG/DL (0.0-1.0); UREA NITROGEN (BUN) 63 mg/dL (9-23)
[2016-12-27 07:33] LABS: ANION GAP 16 MEQ/L (2-14); CHLORIDE 101 MEQ/L (99-109); GFR ESTIMATE (CALCULATED) 20 mL/min/; GLUCOSE 129 mg/dL (70-99); POTASSIUM 4.9 MEQ/L (3.7-5.4); SAMPLE HEMOLYSIS CHECK 0; SAMPLE ICTERIC CHECK 0; SAMPLE LIPEMIA CHECK 0; SODIUM 132 MEQ/L (136-147); UREA NITROGEN (BUN) 62 mg/dL (9-23)
[2016-12-27 08:45] VITALS: BP 152/86
[2016-12-27 11:03] LABS: POINT-OF-CARE METER ID UU13113725
[2016-12-27 11:21] VITALS: BP 142/80
[2016-12-27] MEDS ORDERED: LOPRESSOR25 MG PO (13:11)
[2016-12-27] MEDS ORDERED: RENVELA800 MG PO (13:12)
[2016-12-27] MEDS ORDERED: AMLODIPINE BESYL5 MG PO (13:12)
[2016-12-27] MEDS ORDERED: LEVEMIR100 UNIT/2 SC (13:13)
[2016-12-27] MEDS ORDERED: CALCITRIOL0.25 MCG PO (13:13)
[2016-12-27] MEDS ORDERED: NABI650T PO (13:26)
[2016-12-27] MEDS ORDERED: XARELTO15 MG PO (14:00)
== END 2016-12-27 14:19 | disposition home health service (06) | DRG 178 ==
LOC: EME 12:53 → ENRESERV 15:48 → EDOF 15:48 → 5EAST 15:48 → ENRESERV 16:22 → 5EAST 17:27 → ENPENDDIS 12-27 → 5EAST 12-27 14:19
PROVIDERS: Emergency Medicine; Hospitalist; Internal Medicine; Internal Medicine Gastroenterology; Internal Medicine Nephrology; Physician Assistant; Specialist; Student in an Organized Health Care Education/Training Program
PROC: 0H9NXZX Drainage of Left Foot Skin, External Approach, Diagnostic (ICD-10-PCS; principal; 2016-12-17)
DX: J69.0 Pneumonitis due to inhalation of food and vomit (principal); I13.0 Hypertensive heart and chronic kidney disease with heart failure and stage 1 through stage 4 chronic kidney disease, or unspecified chronic kidney disease; J15.212 Pneumonia due to Methicillin resistant Staphylococcus aureus; I50.22 Chronic systolic (congestive) heart failure; I25.10 Atherosclerotic heart disease of native coronary artery without angina pectoris; E11.22 Type 2 diabetes mellitus with diabetic chronic kidney disease; E11.51 Type 2 diabetes mellitus with diabetic peripheral angiopathy without gangrene; R13.10 Dysphagia, unspecified; D50.9 Iron deficiency anemia, unspecified; D63.1 Anemia in chronic kidney disease; E55.9 Vitamin D deficiency, unspecified; Z89.421 Acquired absence of other right toe(s); Z85.51 Personal history of malignant neoplasm of bladder; I48.0 Paroxysmal atrial fibrillation; N18.3 Chronic kidney disease, stage 3 (moderate); I25.5 Ischemic cardiomyopathy; Z93.1 Gastrostomy status; E87.2 Acidosis; N40.1 Benign prostatic hyperplasia with lower urinary tract symptoms; R32 Unspecified urinary incontinence; L03.012 Cellulitis of left finger; L02.512 Cutaneous abscess of left hand; E11.21 Type 2 diabetes mellitus with diabetic nephropathy; E78.5 Hyperlipidemia, unspecified; I25.2 Old myocardial infarction; E87.1 Hypo-osmolality and hyponatremia; F43.20 Adjustment disorder, unspecified; G47.00 Insomnia, unspecified; I44.7 Left bundle-branch block, unspecified; I27.2 Other secondary pulmonary hypertension; I08.3 Combined rheumatic disorders of mitral, aortic and tricuspid valves; D53.9 Nutritional anemia, unspecified; Z89.432 Acquired absence of left foot; Z89.431 Acquired absence of right foot
CPT/HCPCS: 71010; 71020; 71250; 74020; 74176; 74181; 76705; 76770; 80048; 80048 91; 80053; 80069; 80074; 80076; 80202; 81003; 81050; 82140; 82272; 82306; 82436; 82570; 82575; 82800; 82803; 82948; 83036; 83540; 83630; 83690; 83970; 84100; 84133; 84156; 84300; 84466; 84484; 84550; 85025; 85027; 85610; 85730; 86334; 86335; 87040; 87045; 87046; 87070; 87075; 87077; 87147; 87177; 87186; 87205; 87449; 87493; 87506; 87641; 89190; 92526 GN; 92610 GN; 93005; 93306; 94010; 94640 76; 94799; 99202; 99281; 99285; C1753; J1815; J2405; J2543; J3370; J7030; J7050; P9047

== ENCOUNTER 2017-01-04 09:31 | Inpatient (IN) | payer OTHER, BC ==
[~2017-01-04] VITALS: Ht 175.3 cm; Wt 67.3 kg
[~2017-01-04 09:31] MED LIST changes: +AMLODIPINE BESYL5 MG PO; +CALCITRIOL0.25 MCG PO; +KEFLEX500 MG PO; +LIPITOR80 MG GT; +LOPRESSOR25 MG PO; +NABI650T PO; +PACERONE200 MG GT; +PROTONIX40 M1 PO; +RENVELA800 MG PO; +TRIAMCINOLONE A15 GM TP; +XARELTO15 MG PO; +ZESTRIL5 MG GT; +ZOCOR10 MG PO
[2017-01-04 11:30] LABS: CHLORIDE 102 mEq/L (99-109); POTASSIUM 5.4 mEq/L (3.7-5.4)
[2017-01-04 11:31] LABS: SODIUM 138 mEq/L (136-147)
[2017-01-04 11:33] LABS: GLUCOSE 142 mg/dL (70-99)
[2017-01-04 11:34] LABS: ANION GAP 19 MEQ/L (2-14)
[2017-01-04 11:35] LABS: TOTAL BILIRUBIN 1.5 mg/dL (0.0-1.0)
[2017-01-04 11:36] LABS: ALKALINE PHOSPHATASE 327 IU/L (3-129); GFR ESTIMATE (CALCULATED) 27 mL/min/
[2017-01-04 11:38] LABS: UREA NITROGEN (BUN) 44 mg/dL (9-23)
[2017-01-04 11:40] LABS: TROP-I INTERPRETATION NEGATIVE; TROPONIN-I 0.05 ng/mL (0.0-0.30)
[2017-01-04 12:04] LABS: HEMATOCRIT 32.4 % (38.0-50.0); MCH 29.2 PG (29.0-34.0); MCHC 31.8 G/DL (30.0-36.0); MCV 91.8 FL (86-99); MEAN PLAT.VOLUME 11.5 uM^3 (9.0-12.4); PLATELET COUNT 191 K/uL (156-360); RBC DIS.WIDTH-CV 18.6 % (11.8-14.6); RBC DIS.WIDTH-SD 62.6 % (39-53); RED BLOOD COUNT 3.53 M/uL (4.00-5.50); WHITE BLOOD COUNT 8.6 K/uL (4.1-10.2)
[2017-01-04] MEDS ORDERED: LO-DOSE ASPIRIN81 M2 PO (14:08)
[2017-01-04] MEDS ORDERED: LOPRESSOR25 MG PO (14:09)
[2017-01-04] MEDS ORDERED: [UNRECOGNIZED DRUG - OTHER] PO (14:10)
[2017-01-04] MEDS ORDERED: BACTRIM,SEPT1 TABLET PO (14:12)
[2017-01-04] MEDS ORDERED: NITROGLYCERIN0.4 MG SL (14:13)
[2017-01-04 14:22] LABS: ADD MIUA? YES; BILIRUBIN NEGATIVE; BLOOD SMALL; COLOR YELLOW ((YELLOW)); GLUCOSE (STRIP) NEGATIVE; KETONES NEGATIVE; LEUKOCYTES TRACE; NITRITE NEGATIVE; PROTEIN (STRIP) 100; SPECIFIC GRAVITY 1.013 (1.000-1.030)
[2017-01-04 14:26] LABS: BACTERIA RARE /HPF; EPITHELIAL CELLS RARE /HPF; MUCUS TRACE /LPF; UCUL ADDED? YES
[2017-01-04] MEDS ORDERED: BRILINTA90 MG PO (16:10)
[2017-01-04 16:12] VITALS: BP 143/72
[2017-01-04 17:27] LABS: TROP-I INTERPRETATION NEGATIVE; TROPONIN-I 0.05 ng/mL (0.0-0.30)
[2017-01-04 19:34] VITALS: BP 141/80
[2017-01-04 22:20] LABS: TROP-I INTERPRETATION NEGATIVE; TROPONIN-I 0.05 ng/mL (0.0-0.30)
[2017-01-04 23:47] VITALS: BP 126/75
[2017-01-05 05:51] LABS: MCH 29.5 PG (29.0-34.0); MCHC 31.2 G/DL (30.0-36.0); MCV 94.6 FL (86-99); MEAN PLAT.VOLUME 11.4 uM^3 (9.0-12.4); PLATELET COUNT 185 K/uL (156-360); RBC DIS.WIDTH-CV 18.8 % (11.8-14.6); RBC DIS.WIDTH-SD 64.7 % (39-53); RED BLOOD COUNT 3.49 M/uL (4.00-5.50); WHITE BLOOD COUNT 8.3 K/uL (4.1-10.2)
[2017-01-05 06:25] LABS: ALKALINE PHOSPHATASE 243 IU/L (3-129); ANION GAP 14 MEQ/L (2-14); CHLORIDE 100 MEQ/L (99-109); GFR ESTIMATE (CALCULATED) 25 mL/min/; GLUCOSE 139 mg/dL (70-99); POTASSIUM 5.2 MEQ/L (3.7-5.4); SAMPLE HEMOLYSIS CHECK 0; SAMPLE ICTERIC CHECK 0; SAMPLE LIPEMIA CHECK 0; SODIUM 134 MEQ/L (136-147); TOTAL BILIRUBIN 1.3 MG/DL (0.0-1.0); UREA NITROGEN (BUN) 46 mg/dL (9-23)
[2017-01-05 08:49] VITALS: BP 139/72
[2017-01-05 12:26] LABS: POINT-OF-CARE METER ID UU13113725
[2017-01-05 16:09] VITALS: BP 155/87
[2017-01-05 17:38] LABS: POINT-OF-CARE METER ID UU13113725
[2017-01-05 21:08] LABS: POINT-OF-CARE METER ID UU13113725
[2017-01-06 06:28] LABS: HEMATOCRIT 32.6 % (38.0-50.0); MCH 28.8 PG (29.0-34.0); MCHC 31.3 G/DL (30.0-36.0); MCV 92.1 FL (86-99); MEAN PLAT.VOLUME 11.9 uM^3 (9.0-12.4); PLATELET COUNT 183 K/uL (156-360); RBC DIS.WIDTH-CV 18.6 % (11.8-14.6); RBC DIS.WIDTH-SD 60.9 % (39-53); RED BLOOD COUNT 3.54 M/uL (4.00-5.50); WHITE BLOOD COUNT 8.4 K/uL (4.1-10.2)
[2017-01-06 07:24] LABS: ANION GAP 11 MEQ/L (2-14); CHLORIDE 104 MEQ/L (99-109); GFR ESTIMATE (CALCULATED) 25 mL/min/; GLUCOSE 67 mg/dL (70-99); SAMPLE HEMOLYSIS CHECK 0; SAMPLE ICTERIC CHECK 0; SAMPLE LIPEMIA CHECK 0; SODIUM 138 MEQ/L (136-147); UREA NITROGEN (BUN) 49 mg/dL (9-23)
[2017-01-06 08:03] VITALS: BP 111/59; BP 145/87
[2017-01-06 09:31] LABS: BASE EXCESS -3.1 mEq/L (-3 to +3); BICARBONATE 20.9 mEq/L (22-26); METHEMOGLOBIN 1.3 % (0-1.5); PCO2 33 mm Hg (35-45); PO2 67 mm Hg (80-100); pH 7.41 (7.35-7.45)
[2017-01-06 09:32] LABS: COMMENTS - BLOOD GASES A+C+; DEVICE RA; SITE RR; TOTAL RESP RATE 24 resp/min
[2017-01-06 12:24] LABS: INTER. NORMALIZED RATIO 1.8; PROTHROMBIN TIME 19.7 SEC (10.2-12.9)
[2017-01-06 13:32] LABS: PTT 20.8 SEC (25-37)
[2017-01-06 14:28] LABS: TYPE OF FLUID PLEURAL
[2017-01-06 15:25] LABS: BODY FLUID EOSINOPHILS 0 % (0-25); BODY FLUID RBC'S 4000 /MM^3 (0-100); BODY FLUID WBC'S 160 /MM^3 (0-500); COMMENT MANY MACROPHAGES AND MESOTHELIAL CELLS SEEN; MONONUCLEAR WBC'S 91 %; POLYNUCLEAR WBC'S 9 % (0-25)
[2017-01-06 16:11] LABS: BODY FLUID PROTEIN < 3.0 G/DL
[2017-01-06 16:45] VITALS: BP 148/78
[2017-01-06 19:29] VITALS: BP 132/68
[2017-01-06 20:59] LABS: POINT-OF-CARE METER ID UU13113725
[2017-01-06 21:24] LABS: POINT-OF-CARE METER ID UU13113725
[2017-01-06 22:55] VITALS: BP 139/66
[2017-01-07 02:48] VITALS: BP 135/79
[2017-01-07 06:01] LABS: HEMATOCRIT 32.1 % (38.0-50.0); MCH 30.1 PG (29.0-34.0); MCHC 33.3 G/DL (30.0-36.0); MCV 90.4 FL (86-99); MEAN PLAT.VOLUME 11.8 uM^3 (9.0-12.4); PLATELET COUNT 184 K/uL (156-360); RBC DIS.WIDTH-CV 18.6 % (11.8-14.6); RBC DIS.WIDTH-SD 60.6 % (39-53); RED BLOOD COUNT 3.55 M/uL (4.00-5.50); WHITE BLOOD COUNT 7.5 K/uL (4.1-10.2)
[2017-01-07 06:17] LABS: POINT-OF-CARE METER ID UU13113725
[2017-01-07 06:18] LABS: ANION GAP 13 MEQ/L (2-14); CHLORIDE 103 MEQ/L (99-109); GFR ESTIMATE (CALCULATED) 26 mL/min/; MAGNESIUM 2.1 mg/dl (1.3-2.7); SAMPLE HEMOLYSIS CHECK 0; SAMPLE ICTERIC CHECK 0; SAMPLE LIPEMIA CHECK 0; SODIUM 140 MEQ/L (136-147); UREA NITROGEN (BUN) 49 mg/dL (9-23)
[2017-01-07 06:19] LABS: GLUCOSE 144 mg/dL (70-99); POTASSIUM 3.9 MEQ/L (3.7-5.4)
[2017-01-07 07:29] VITALS: BP 110/83
[2017-01-07 12:08] VITALS: BP 117/60
[2017-01-07 15:26] LABS: POINT-OF-CARE METER ID UU13113725
[2017-01-07 16:00] VITALS: BP 115/58
[2017-01-07 19:52] VITALS: BP 124/64
[2017-01-07 21:15] LABS: POINT-OF-CARE METER ID UU13113725
[2017-01-08 00:07] VITALS: BP 115/55
[2017-01-08 06:07] LABS: HEMATOCRIT 30.6 % (38.0-50.0); MCH 30.2 PG (29.0-34.0); MCHC 33.7 G/DL (30.0-36.0); MCV 89.7 FL (86-99); MEAN PLAT.VOLUME 11.9 uM^3 (9.0-12.4); PLATELET COUNT 184 K/uL (156-360); RBC DIS.WIDTH-CV 18.6 % (11.8-14.6); RBC DIS.WIDTH-SD 60.4 % (39-53); RED BLOOD COUNT 3.41 M/uL (4.00-5.50); WHITE BLOOD COUNT 7.6 K/uL (4.1-10.2)
[2017-01-08 06:37] LABS: ANION GAP 11 MEQ/L (2-14); CHLORIDE 98 MEQ/L (99-109); GFR ESTIMATE (CALCULATED) 27 mL/min/; POTASSIUM 3.7 MEQ/L (3.7-5.4); SAMPLE HEMOLYSIS CHECK 0; SAMPLE ICTERIC CHECK 0; SAMPLE LIPEMIA CHECK 0; SODIUM 135 MEQ/L (136-147); UREA NITROGEN (BUN) 47 mg/dL (9-23)
[2017-01-08 06:38] LABS: GLUCOSE 58 mg/dL (70-99)
[2017-01-08 08:00] VITALS: BP 114/61
[2017-01-08 08:18] LABS: INTERNAL CONTROL VALID? YES
[2017-01-08 12:14] LABS: POINT-OF-CARE METER ID UU13113725
[2017-01-08 16:39] LABS: POINT-OF-CARE METER ID UU13113725
[2017-01-08 21:07] LABS: POINT-OF-CARE METER ID UU13113725
[2017-01-08 21:32] VITALS: BP 120/69
[2017-01-08 23:04] VITALS: BP 124/60
[2017-01-09 03:24] LABS: POINT-OF-CARE METER ID UU13113725
[2017-01-09 03:27] VITALS: BP 119/65
[2017-01-09 06:19] LABS: MAGNESIUM 1.8 mg/dl (1.3-2.7)
[2017-01-09 06:22] LABS: ANION GAP 13 MEQ/L (2-14); CHLORIDE 97 MEQ/L (99-109); GFR ESTIMATE (CALCULATED) 26 mL/min/; POTASSIUM 3.8 MEQ/L (3.7-5.4); SAMPLE HEMOLYSIS CHECK 0; SAMPLE ICTERIC CHECK 0; SAMPLE LIPEMIA CHECK 0; SODIUM 138 MEQ/L (136-147); UREA NITROGEN (BUN) 49 mg/dL (9-23)
[2017-01-09 06:23] LABS: GLUCOSE 144 mg/dL (70-99); TROP-I INTERPRETATION NEGATIVE; TROPONIN-I 0.04 ng/mL (0.0-0.30)
[2017-01-09 07:45] VITALS: BP 149/67
[2017-01-09 11:22] VITALS: BP 127/59
[2017-01-09 15:49] VITALS: BP 143/62
[2017-01-09 16:21] LABS: POINT-OF-CARE METER ID UU13113725
[2017-01-09 19:59] VITALS: BP 148/61
[2017-01-09 23:34] VITALS: BP 123/63
[2017-01-10 04:19] VITALS: BP 122/58
[2017-01-10 07:02] LABS: ANION GAP 9 MEQ/L (2-14); CHLORIDE 98 MEQ/L (99-109); GFR ESTIMATE (CALCULATED) 29 mL/min/; GLUCOSE 166 mg/dL (70-99); POTASSIUM 3.6 MEQ/L (3.7-5.4); SAMPLE HEMOLYSIS CHECK 0; SAMPLE ICTERIC CHECK 0; SAMPLE LIPEMIA CHECK 0; SODIUM 139 MEQ/L (136-147); UREA NITROGEN (BUN) 49 mg/dL (9-23)
[2017-01-10 07:22] VITALS: BP 110/68
[2017-01-10] MEDS ORDERED: LASIX40 MG PO (10:21)
[2017-01-10] MEDS ORDERED: LISINOPRIL2.5 MG PO (10:22)
[2017-01-10] MEDS ORDERED: K-DUR20 MEQ PO (10:22)
[2017-01-10] MEDS ORDERED: ATORVASTATIN CA40 MG PO (10:24)
[2017-01-10 11:37] VITALS: BP 124/68
== END 2017-01-10 14:54 | DRG 291 ==
LOC: EME 09:31 → EDOF 13:59 → 5EAST 13:59 → ENRESERV 14:04 → 5EAST 15:34 → ENPENDDIS 01-10 → EDPENDDISTM 01-10 14:00 → 5EAST 01-10 14:54
PROVIDERS: Emergency Medicine; Hospitalist; Internal Medicine
PROC: 0W993ZZ Drainage of Right Pleural Cavity, Percutaneous Approach (ICD-10-PCS; principal; 2017-01-06)
DX: I13.0 Hypertensive heart and chronic kidney disease with heart failure and stage 1 through stage 4 chronic kidney disease, or unspecified chronic kidney disease (principal); I50.23 Acute on chronic systolic (congestive) heart failure; J90 Pleural effusion, not elsewhere classified; N18.4 Chronic kidney disease, stage 4 (severe); E11.22 Type 2 diabetes mellitus with diabetic chronic kidney disease; E11.21 Type 2 diabetes mellitus with diabetic nephropathy; N17.9 Acute kidney failure, unspecified; I27.2 Other secondary pulmonary hypertension; I34.0 Nonrheumatic mitral (valve) insufficiency; J96.11 Chronic respiratory failure with hypoxia; N25.81 Secondary hyperparathyroidism of renal origin; I48.0 Paroxysmal atrial fibrillation; I25.5 Ischemic cardiomyopathy; D63.1 Anemia in chronic kidney disease; I44.7 Left bundle-branch block, unspecified; N40.1 Benign prostatic hyperplasia with lower urinary tract symptoms; R33.9 Retention of urine, unspecified; R31.9 Hematuria, unspecified; R13.10 Dysphagia, unspecified; I73.9 Peripheral vascular disease, unspecified; Z93.1 Gastrostomy status; Z16.12 Extended spectrum beta lactamase (ESBL) resistance; I25.10 Atherosclerotic heart disease of native coronary artery without angina pectoris; I25.2 Old myocardial infarction; Z16.24 Resistance to multiple antibiotics; Z79.4 Long term (current) use of insulin; Z86.73 Personal history of transient ischemic attack (TIA), and cerebral infarction without residual deficits; Z79.82 Long term (current) use of aspirin; Z85.51 Personal history of malignant neoplasm of bladder; Z98.61 Coronary angioplasty status
CPT/HCPCS: 36600; 71010; 71020; 74230; 76770; 76942; 80048; 80053; 81003; 82803; 82945; 82948; 83605; 83735; 83880; 83986 90; 84100; 84157; 84484; 85027; 85610; 85730; 87040; 87070; 87075; 87077; 87086; 87116; 87186; 87205; 87206; 87449; 88108; 88305; 89051; 92610 GN; 92611 GN; 93005; 94640; 94799; 97530 GO; 99281; 99285; J1335; J1644; J1815; J1940; J2543; J3370; J7030; J7050; J7120

== ENCOUNTER 2017-04-01 09:03 | Emergency (ER) | payer OTHER, BC ==
[~2017-04-01] VITALS: Ht 175.3 cm; Wt 77.1 kg
[~2017-04-01 09:03] MED LIST changes: +ATORVASTATIN CA40 MG PO; +BACTRIM,SEPT1 TABLET PO; +BRILINTA90 MG PO; +K-DUR20 MEQ PO; +LASIX40 MG PO; +LISINOPRIL2.5 MG PO; +LO-DOSE ASPIRIN81 M2 PO; +NITROGLYCERIN0.4 MG SL; +[UNRECOGNIZED DRUG - OTHER] PO
[2017-04-01 10:09] LABS: EOSINOPHIL (%) 0.6 % (0-5); EOSINOPHIL COUNT 0.1 K/uL (0-0.3); HEMATOCRIT 30.3 % (38.0-50.0); IMMATURE GRANULOCYTE (%) 0.2 % (0.0-0.7); INSTRUMENT ABS NEUTROPHIL CT 5.4 K/uL; LYMPHOCYTE COUNT 1.7 K/uL (1.0-2.8); MCH 29.7 PG (29.0-34.0); MCHC 32.3 G/DL (30.0-36.0); MCV 91.8 FL (86-99); MEAN PLAT.VOLUME 10.6 uM^3 (9.0-12.4); MONOCYTE (%) 11.8 % (3-12); NEUTROPHIL (%) 66.1 % (45-76); NEUTROPHIL COUNT 5.4 K/uL (1.8-6.4); NRBC (%) 0.5 /100 WBC (0-0); PLATELET COUNT 219 K/uL (156-360); RBC DIS.WIDTH-CV 18.1 % (11.8-14.6); RBC DIS.WIDTH-SD 59.7 % (39-53); WHITE BLOOD COUNT 8.1 K/uL (4.1-10.2)
[2017-04-01 10:15] LABS: INTER. NORMALIZED RATIO 1.4; PROTHROMBIN TIME 15.7 SEC (10.2-12.9)
[2017-04-01 10:18] LABS: PTT 28.2 SEC (25-37)
[2017-04-01 10:19] LABS: CHLORIDE 107 mEq/L (99-109); POTASSIUM 4.8 mEq/L (3.7-5.4); SODIUM 136 mEq/L (136-147)
[2017-04-01 10:20] LABS: GLUCOSE 264 mg/dL (70-99)
[2017-04-01 10:22] LABS: ANION GAP 11 MEQ/L (2-14)
[2017-04-01 10:24] LABS: GFR ESTIMATE (CALCULATED) 34 mL/min/ (58.99-99999)
[2017-04-01 10:25] LABS: UREA NITROGEN (BUN) 45 mg/dL (9-23)
[2017-04-01 10:32] LABS: TROP-I INTERPRETATION NEGATIVE; TROPONIN-I 0.04 ng/mL (0.0-0.30)
[2017-04-01] MEDS ORDERED: LEVAQUIN500 MG PO (11:55)
[2017-04-01 12:21] VITALS: BP 155/88
== END 2017-04-01 12:23 | disposition home or self-care (01) ==
LOC: EME 09:03
PROVIDERS: Emergency Medicine
DX: J20.9 Acute bronchitis, unspecified (principal); I12.9 Hypertensive chronic kidney disease with stage 1 through stage 4 chronic kidney disease, or unspecified chronic kidney disease; E11.22 Type 2 diabetes mellitus with diabetic chronic kidney disease; N18.9 Chronic kidney disease, unspecified; I48.91 Unspecified atrial fibrillation; Z93.1 Gastrostomy status; Z79.02 Long term (current) use of antithrombotics/antiplatelets; Z85.51 Personal history of malignant neoplasm of bladder; I25.2 Old myocardial infarction; E78.5 Hyperlipidemia, unspecified; Z86.73 Personal history of transient ischemic attack (TIA), and cerebral infarction without residual deficits; Z79.82 Long term (current) use of aspirin
CPT/HCPCS: 71020; 74176; 80048; 84484; 85025; 85610; 85730; 93005; 99281; 99284

== ENCOUNTER 2017-05-02 10:20 | Inpatient (IN) | payer OTHER, BC ==
[~2017-05-02] VITALS: Ht 175.3 cm; Wt 71.5 kg
[~2017-05-02 10:20] MED LIST changes: +LEVAQUIN500 MG PO
[2017-05-02 13:33] LABS: HEMATOCRIT 35.1 % (38.0-50.0); HEMOGLOBIN 11.4 G/DL (12.5-16.6); MCH 30.5 PG (29.0-34.0); MCHC 32.5 G/DL (30.0-36.0); MCV 93.9 FL (86-99); PLATELET COUNT 189 K/uL (156-360); RBC DIS.WIDTH-CV 18.4 % (11.8-14.6); RBC DIS.WIDTH-SD 62.6 % (39-53); RED BLOOD COUNT 3.74 M/uL (4.00-5.50); WHITE BLOOD COUNT 7.9 K/uL (4.1-10.2)
[2017-05-02 13:41] LABS: ALBUMIN 3.4 g/dL (3.2-4.8); CHLORIDE 102 mEq/L (99-109); POTASSIUM 4.8 mEq/L (3.7-5.4); SODIUM 131 mEq/L (136-147)
[2017-05-02 13:43] LABS: GLUCOSE 199 mg/dL (70-99)
[2017-05-02 13:45] LABS: TOTAL BILIRUBIN 2.2 mg/dL (0.0-1.0)
[2017-05-02 13:47] LABS: ALKALINE PHOSPHATASE 126 IU/L (3-129); CREATININE 2.4 mg/dL (0.6-1.3); GFR ESTIMATE (CALCULATED) 34 mL/min/ (58.99-99999)
[2017-05-02 13:48] LABS: AST (GOT) 61 IU/L (2-34); UREA NITROGEN (BUN) 48 mg/dL (9-23)
[2017-05-02 13:49] LABS: DIRECT BILIRUBIN 1.2 mg/dL (0.0-0.3)
[2017-05-02 13:50] LABS: ALT (GPT) 57 IU/L (3-49)
[2017-05-02 13:53] LABS: TROP-I INTERPRETATION INDETERMINATE; TROPONIN-I 0.44 ng/mL (0.0-0.30)
[2017-05-02 14:46] LABS: INTER. NORMALIZED RATIO 1.3
[2017-05-02 14:49] LABS: PTT 26.8 SEC (25-37)
[2017-05-02] MEDS ORDERED: LIPITOR40 MG PO (15:34)
[2017-05-02] MEDS ORDERED: LISINOPRIL2.5 MG PO (15:35)
[2017-05-02] MEDS ORDERED: K-DUR20 MEQ PO (15:35)
[2017-05-02] MEDS ORDERED: LASIX40 MG PO (15:35)
[2017-05-02] MEDS ORDERED: LEVEMIR100 UNIT/2 SC (15:36)
[2017-05-02] MEDS ORDERED: PROAIR HFA8.5 GM IH (15:36)
[2017-05-02 16:13] LABS: MAGNESIUM 2.3 mg/dL (1.3-2.7)
[2017-05-02 16:14] LABS: HEMOGLOBIN A1c (GLYCOHEMOGLOB) 8.1 % HGB (Below 5.7)
[2017-05-02 16:20] LABS: CREATINE KINASE 218 IU/L (1-294); TOTAL CK 218 IU/L (1-294)
[2017-05-02 16:25] LABS: CK-MB 3.3 ng/mL (0.0-4.9); CKMB RELATIVE INDEX 1.5 (0.0-3.9)
[2017-05-02 17:33] LABS: APPEARANCE SL.HAZY ((CLEAR)); BILIRUBIN NEGATIVE; BLOOD SMALL; COLOR YELLOW ((YELLOW)); GLUCOSE (STRIP) NEGATIVE; KETONES NEGATIVE; LEUKOCYTES SMALL; NITRITE NEGATIVE; PROTEIN (STRIP) 30; SPECIFIC GRAVITY 1.008 (1.000-1.030)
[2017-05-02 17:53] LABS: BACTERIA RARE /HPF; EPITHELIAL CELLS RARE /HPF; HYALINE CASTS 0-5 /LPF; MUCUS NONE SEEN /LPF; UCUL ADDED? YES
[2017-05-02 20:32] LABS: TROP-I INTERPRETATION INDETERMINATE; TROPONIN-I 0.36 ng/mL (0.0-0.30)
[2017-05-02 21:10] VITALS: BP 137/79
[2017-05-02 21:15] VITALS: BP 137/79
[2017-05-03 00:24] VITALS: BP 136/81
[2017-05-03 01:54] LABS: TROP-I INTERPRETATION INDETERMINATE; TROPONIN-I 0.32 ng/mL (0.0-0.30)
[2017-05-03 04:21] VITALS: BP 133/80
[2017-05-03 05:57] LABS: HEMATOCRIT 33.5 % (38.0-50.0); HEMOGLOBIN 10.8 G/DL (12.5-16.6); MCH 30.5 PG (29.0-34.0); MCHC 32.2 G/DL (30.0-36.0); MCV 94.6 FL (86-99); PLATELET COUNT 162 K/uL (156-360); RBC DIS.WIDTH-CV 18.6 % (11.8-14.6); RBC DIS.WIDTH-SD 63.1 % (39-53); RED BLOOD COUNT 3.54 M/uL (4.00-5.50); WHITE BLOOD COUNT 4.8 K/uL (4.1-10.2)
[2017-05-03 05:59] LABS: INTER. NORMALIZED RATIO 1.5
[2017-05-03 06:01] LABS: PTT 28.2 SEC (25-37)
[2017-05-03 06:19] LABS: ALBUMIN 3.2 G/DL (3.2-4.8); ALKALINE PHOSPHATASE 108 IU/L (3-129); ALT (GPT) 41 IU/L (3-49); AST (GOT) 42 IU/L (2-34); CHLORIDE 102 MEQ/L (99-109); CREATININE 2.4 MG/DL (0.6-1.3); GFR ESTIMATE (CALCULATED) 34 mL/min/ (58.99-99999); GLUCOSE 172 mg/dL (70-99); POTASSIUM 4.5 MEQ/L (3.7-5.4); SODIUM 132 MEQ/L (136-147); TOTAL BILIRUBIN 1.8 MG/DL (0.0-1.0); TOTAL PROTEIN 6.2 G/DL (6.4-8.3); UREA NITROGEN (BUN) 52 mg/dL (9-23)
[2017-05-03 07:18] VITALS: BP 130/69
[2017-05-03 10:58] LABS: TROP-I INTERPRETATION INDETERMINATE; TROPONIN-I 0.32 ng/mL (0.0-0.30)
[2017-05-03 12:08] VITALS: BP 144/65
[2017-05-03 14:44] LABS: PCO2 23 mm Hg (35-45); PO2 97 mm Hg (80-100); pH 7.27 (7.35-7.45)
[2017-05-03 14:45] LABS: BASE EXCESS -14.5 mEq/L (-3 to +3); BICARBONATE 10.6 mEq/L (22-26); CARBOXY HGB 1.8 % (0-5); COMMENTS - BLOOD GASES A+C+; DEVICE NC; METHEMOGLOBIN 1.2 % (0-1.5); O2 FLOW 2 L/MIN; SITE LR; TOTAL RESP RATE 21 resp/min
[2017-05-03 16:55] VITALS: BP 125/79
[2017-05-03 19:07] VITALS: BP 127/71
[2017-05-04 00:15] VITALS: BP 133/82
[2017-05-04 04:46] VITALS: BP 129/65
[2017-05-04 09:20] VITALS: BP 130/74
[2017-05-04 10:03] LABS: BASOPHIL (%) 0.1 % (0-1); EOSINOPHIL (%) 0 % (0-5); HEMATOCRIT 39.4 % (38.0-50.0); IMMATURE GRANULOCYTE (%) 0.5 % (0.0-0.7); LYMPHOCYTE (%) 8.5 % (15-42); LYMPHOCYTE COUNT 0.9 K/uL (1.0-2.8); MCH 30.7 PG (29.0-34.0); MCV 92.9 FL (86-99); MONOCYTE (%) 7.6 % (3-12); MONOCYTE COUNT 0.8 K/uL (0-0.8); NEUTROPHIL (%) 83.3 % (45-76); NEUTROPHIL COUNT 9.1 K/uL (1.8-6.4); PLATELET COUNT 159 K/uL (156-360); RBC DIS.WIDTH-CV 18.7 % (11.8-14.6); RBC DIS.WIDTH-SD 62.8 % (39-53); RED BLOOD COUNT 4.24 M/uL (4.00-5.50); WHITE BLOOD COUNT 10.9 K/uL (4.1-10.2)
[2017-05-04 10:38] LABS: CHLORIDE 100 MEQ/L (99-109); POTASSIUM 4.8 MEQ/L (3.7-5.4); SODIUM 131 MEQ/L (136-147)
[2017-05-04 10:43] LABS: CREATININE 2.5 MG/DL (0.6-1.3); GFR ESTIMATE (CALCULATED) 33 mL/min/ (58.99-99999); GLUCOSE 128 mg/dL (70-99); UREA NITROGEN (BUN) 63 mg/dL (9-23)
[2017-05-04 12:01] VITALS: BP 104/72
[2017-05-04 18:00] VITALS: BP 137/72
[2017-05-04 20:57] VITALS: BP 122/67
[2017-05-05 01:13] VITALS: BP 114/73
[2017-05-05 02:04] VITALS: BP 125/68
[2017-05-05] MEDS ORDERED: PREDNISONE5 MG PO (10:01)
[2017-05-05] MEDS ORDERED: NITROSTAT0.4 MG SL (10:01)
== END 2017-05-05 13:35 | disposition home health service (06) | DRG 190 ==
LOC: EME 10:20 → 4EAST 15:12 → EDOF 15:12 → ENRESERV 15:17 → 4EAST 20:58 → ENRESERV 05-04 23:45 → 4SOUTH 05-05 01:39
PROVIDERS: Internal Medicine; Physician Assistant Medical
DX: J44.1 Chronic obstructive pulmonary disease with (acute) exacerbation (principal); J96.01 Acute respiratory failure with hypoxia; I21.4 Non-ST elevation (NSTEMI) myocardial infarction; I13.0 Hypertensive heart and chronic kidney disease with heart failure and stage 1 through stage 4 chronic kidney disease, or unspecified chronic kidney disease; I50.23 Acute on chronic systolic (congestive) heart failure; N17.9 Acute kidney failure, unspecified; I25.5 Ischemic cardiomyopathy; E87.2 Acidosis; E86.0 Dehydration; J20.9 Acute bronchitis, unspecified; J44.0 Chronic obstructive pulmonary disease with (acute) lower respiratory infection; N18.3 Chronic kidney disease, stage 3 (moderate); E11.22 Type 2 diabetes mellitus with diabetic chronic kidney disease; I48.0 Paroxysmal atrial fibrillation; E11.40 Type 2 diabetes mellitus with diabetic neuropathy, unspecified; E11.51 Type 2 diabetes mellitus with diabetic peripheral angiopathy without gangrene; I65.22 Occlusion and stenosis of left carotid artery; N25.81 Secondary hyperparathyroidism of renal origin; J98.11 Atelectasis; I25.10 Atherosclerotic heart disease of native coronary artery without angina pectoris; I25.2 Old myocardial infarction; E78.5 Hyperlipidemia, unspecified; I44.7 Left bundle-branch block, unspecified; N40.1 Benign prostatic hyperplasia with lower urinary tract symptoms; N39.498 Other specified urinary incontinence; M19.90 Unspecified osteoarthritis, unspecified site; R26.9 Unspecified abnormalities of gait and mobility; D64.9 Anemia, unspecified; F32.9 Major depressive disorder, single episode, unspecified; Z85.51 Personal history of malignant neoplasm of bladder; Z93.6 Other artificial openings of urinary tract status; Z90.6 Acquired absence of other parts of urinary tract; Z86.73 Personal history of transient ischemic attack (TIA), and cerebral infarction without residual deficits; Z95.5 Presence of coronary angioplasty implant and graft; Z89.429 Acquired absence of other toe(s), unspecified side; Z79.82 Long term (current) use of aspirin; Z79.4 Long term (current) use of insulin; Z79.02 Long term (current) use of antithrombotics/antiplatelets; Z87.891 Personal history of nicotine dependence; Z83.3 Family history of diabetes mellitus
CPT/HCPCS: 36600; 71045; 71046; 80048; 80053; 80076; 81003; 82550 91; 82553; 82803; 82948; 83036; 83605; 83735; 83880; 84484; 85025; 85027; 85610; 85730; 87040; 87086; 90686; 93005; 94640; 94640 76; 94799; 99202; 99281; 99285; J0456; J1650; J1815; J1940; J2930; J7030; J7512